=== PATIENT | female | born 1955 | race Caucasian/White ===

== ENCOUNTER 2019-09-02 14:08 | Outpatient (CLI) | payer MEDICARE, OTHER, SELFPAY ==
--- NOTE | 2019-09-02 14:18 | XRR_ITS ---
PROCEDURE INFORMATION: Exam: XR Chest, 2 Views Exam date and time: 09/02/2019 2:31 PM Age: 64 years old Clinical indication: Other: Iritis, lyme disease; Additional info: Iritis/lyme disease TECHNIQUE: Imaging protocol: XR of the chest Views: 2 views. COMPARISON: CR Chest 1 [place] [id number] 01/01/2018 10:16 AM FINDINGS: Lungs: Unremarkable. No consolidation. Pleural space: Unremarkable. No pleural effusion. No pneumothorax. Heart/Mediastinum: Unremarkable. No cardiomegaly. Bones/joints: Unremarkable. XR/XR chest 2V* [id number] IMPRESSION: No acute findings.
== END 2019-09-02 14:09 | disposition home or self-care (01) ==
LOC: RAD 14:13
PROVIDERS: Family Provider Family Medicine; Visit Provider Family Medicine
DX: H20.9 Unspecified iridocyclitis (principal); A69.20 Lyme disease, unspecified
CPT/HCPCS: 71046

== ENCOUNTER 2019-09-20 10:55 | Outpatient (CLI) | payer MEDICARE, OTHER, BC, SELFPAY ==
--- NOTE | 2019-09-20 11:05 | XRR_ITS ---
PROCEDURE INFORMATION: Exam: XR Left Foot Complete Exam date and time: 09/20/2019 11:20 AM Age: 64 years old Clinical indication: Patient HX: Foot pain left second digit x 2 weeks; Additional info: Left foot pain TECHNIQUE: Imaging protocol: XR Left foot. Views: 3 or more views. COMPARISON: No relevant prior studies available. FINDINGS: Bones/joints: Hindfoot -midfoot and midfoot-forefoot articulations normal. Metatarsals and phalanges without an acute process. Subtalar and tibiotalar joint normal. degenerative changes at the first metatarsal phalangeal joint. Degenerative changes within the distal interphalangeal joints most pronounced 3rd ray. large spur formation at the insertion of the plantar aponeurosis. Soft tissues: Normal. XR/XR foot LT min 3V* [id number] IMPRESSION: 1. Degenerative changes within the distal interphalangeal joints most pronounced 3rd ray. 2. Large spur formation at the insertion of the plantar aponeurosis.
== END 2019-09-20 10:56 | disposition home or self-care (01) ==
LOC: RAD 11:00
PROVIDERS: PCP Family Medicine; Visit Provider Nurse Practitioner Family
DX: M79.672 Pain in left foot (principal); M77.32 Calcaneal spur, left foot
CPT/HCPCS: 73630

== ENCOUNTER 2020-03-06 07:49 | Outpatient (CLI) | payer MEDICARE, OTHER, SELFPAY ==
--- NOTE | 2020-03-06 07:57 | MM_ITS ---
WS: [id number] BILATERAL DIGITAL SCREENING MAMMOGRAPHY WITH CAD CLINICAL INFORMATION: SCREENING HISTORY: Screening mammogram. No current complaints. COMPARISON: TECHNIQUE: Bilateral CC and MLO views. FINDINGS: Scattered fibroglandular densities bilaterally. No suspicious focal mass, asymmetry, calcifications, or architectural distortion. No evidence of malignancy. Punctate and lucent centered calcifications. Vascular calcification. MM/[place] [id number] IMPRESSION: BI-RADS: 2-Benign FOLLOW UP: 1 Year Follow-up Recommend return to annual screening mammography.
== END 2020-03-06 07:50 | disposition home or self-care (01) ==
LOC: RADSHAW 07:55
PROVIDERS: PCP Family Medicine; Visit Provider Family Medicine
DX: Z12.31 Encounter for screening mammogram for malignant neoplasm of breast (principal)
CPT/HCPCS: 77067

== ENCOUNTER 2020-04-27 14:39 | Outpatient (CLI) | payer MEDICARE, OTHER, SELFPAY ==
--- NOTE | 2020-04-27 14:51 | US_ITS ---
WS: [id number] INDICATION: Left calf mass TECHNIQUE: Ultrasound soft tissue area of concern FINDINGS: Ultrasound soft tissue area of concern left lateral calf. Normal underlying subcutaneous ti ssue. No cystic or solid lesions. No other abnormalities. US/US soft tissue/extremity [id number] IMPRESSION: Normal soft tissue ultrasound
== END 2020-04-27 14:40 | disposition home or self-care (01) ==
LOC: RAD 14:47
PROVIDERS: PCP Family Medicine; Visit Provider Family Medicine
DX: R22.42 Localized swelling, mass and lump, left lower limb (principal)
CPT/HCPCS: 76882

== ENCOUNTER 2021-07-09 12:49 | Outpatient (CLI) | payer MEDICARE, OTHER, SELFPAY ==
--- NOTE | 2021-07-09 13:11 | MM_ITS ---
WS: [id number] VIEWS: MLO, CC, and ML views both breasts. 3D digital tomosynthesis is also included in this exam. Comparison made with prior exam of 09/02/2011. 03/22/2013. 07/23/2015. 09/22/2016. 01/10/2018. 03/06/2020.. Findings: There was no sign of mass, architectural distortion or suspicious calcification in either breast. Sc attered fibroglandular densities. Regional ultrasound of the left breast from the 7 to 9:00 position would be indicated for further workup. MM/[place] [id number] Impression: BI-RADS: 0-Incomplete: Need additional imaging evaluation FOLLOW-UP: Need Additional Imaging This mammogram was also analyzed by the Computer Aided Detection System R2 Imag e Eligibility And Occupancy Interviewer.
--- NOTE | 2021-07-09 13:11 | US_ITS ---
WS: [id number] Exam: US breast LT limited* [id number] Date/Time of Exam: 07/09/2021 2:09 PM Reason For Exam: BREAST ANOMALY;LT BREAST LUMP The 7:00 to the 9:00 position in the left breast was evaluated with ultrasound. There was no sign of suspicious solid mass or nodule in this region. There were no cysts identified. Recommendations: Continue yearly screening mammography. US/US breast LT limited* [id number] IMPRESSION: 1. No suspicious ultrasound finding identified from the 7:00 to the 9:00 positi on in the left breast. BI-RADS Category 2
== END 2021-07-09 12:50 | disposition home or self-care (01) ==
LOC: RAD 12:53
PROVIDERS: PCP Family Medicine; Visit Provider Family Medicine
DX: Q83.9 Congenital malformation of breast, unspecified (principal)
CPT/HCPCS: 76642; 77062

== ENCOUNTER → 2021-08-12 12:18 | Outpatient (BNVA) | payer MEDICARE, OTHER, SELFPAY | PROVIDERS: PCP Family Medicine; Visit Provider Family Medicine | DX: R53.83 Other fatigue (principal); R06.00 Dyspnea, unspecified; Q83.9 Congenital malformation of breast, unspecified; R07.89 Other chest pain; F43.9 Reaction to severe stress, unspecified | CPT/HCPCS: 80053; 82607; 84439; 84443; 84481; 85025; 85651; 86140 ==

== ENCOUNTER → 2021-08-23 11:03 | Outpatient (BNVA) | payer MEDICARE, OTHER, SELFPAY | PROVIDERS: PCP Family Medicine; Visit Provider Surgery | DX: N64.4 Mastodynia (principal) | CPT/HCPCS: 99203 ==

== ENCOUNTER → 2021-09-22 17:49 | Outpatient (BNVA) | payer MEDICARE, OTHER, SELFPAY | PROVIDERS: PCP Family Medicine; Visit Provider Family Medicine | DX: R30.0 Dysuria (principal); N39.0 Urinary tract infection, site not specified | CPT/HCPCS: 81000; 87086 ==

== ENCOUNTER → 2021-10-26 10:19 | Outpatient (BNVA) | payer MEDICARE, OTHER, SELFPAY | PROVIDERS: PCP Family Medicine; Visit Provider Family Medicine | DX: N39.0 Urinary tract infection, site not specified (principal); J02.9 Acute pharyngitis, unspecified | CPT/HCPCS: 81000 ==

== ENCOUNTER → 2021-12-12 19:00 | Outpatient (BNVA) | payer MEDICARE, OTHER, SELFPAY | PROVIDERS: PCP Family Medicine; Visit Provider Registered Nurse Neonatal Intensive Care | DX: N39.0 Urinary tract infection, site not specified (principal) | CPT/HCPCS: 87086 ==

== ENCOUNTER → 2022-07-07 08:55 | Outpatient (BNVA) | payer MEDICARE, OTHER, SELFPAY | PROVIDERS: PCP Family Medicine; Visit Provider Family Medicine | DX: F41.9 Anxiety disorder, unspecified (principal); N63.0 Unspecified lump in unspecified breast; Z86.39 Personal history of other endocrine, nutritional and metabolic disease; E03.9 Hypothyroidism, unspecified; Z13.6 Encounter for screening for cardiovascular disorders | CPT/HCPCS: 80053; 80061; 81000; 84443; 85025 ==

== ENCOUNTER 2022-08-31 10:51 | Outpatient (CLI) | payer MEDICARE, OTHER, SELFPAY ==
--- NOTE | 2022-08-31 11:17 | MM_ITS ---
WS: [id number] BILATERAL 3D TOMOSYNTHESIS DIGITAL SCREENING MAMMOGRAPHY WITH CAD CLINICAL INFORMATION: SCREENING HISTORY: Screening mammogram. No current complaints. COMPARISON: 2021 TECHNIQUE: Bilateral CC and MLO views. FINDINGS: Scattered fibroglandular densities bilaterally. Progressed asymmetric density mid to posterior LEFT b reast measuring 8 mm along the posterior nipple line best seen on the MLO view. Recommend LEFT breast diagnostic mammography and ultrasound. RIGHT breast is unremarkable. Vascular calcification. Punctate and lucent centered calcifications. MM/[place] [id number] IMPRESSION: BI-RADS: 0-Incomplete: Need additional imaging evaluation FOLLOW UP: Need Additional Imaging Recommend LEFT breast diagnostic mammography and ultrasound.
== END 2022-08-31 10:52 | disposition home or self-care (01) ==
LOC: RAD 10:58 → MOBLMAM 11:00
PROVIDERS: PCP Family Medicine; Visit Provider Family Medicine
DX: Z12.31 Encounter for screening mammogram for malignant neoplasm of breast (principal)
CPT/HCPCS: 77063; 77067

== ENCOUNTER 2022-09-29 13:42 | Outpatient (CLI) | payer MEDICARE, OTHER, SELFPAY ==
--- NOTE | 2022-09-29 13:47 | MM_ITS ---
WS: [id number] LEFT 3D TOMOSYNTHESIS DIGITAL MAMMOGRAPHY WITH CAD CLINICAL INFORMATION: N63.0 - Unspecified lump in unspecified breast HISTORY: Additional views COMPARISON: 08/31/2022 TECHNIQUE: 3 views of the left breast were obtained. FINDINGS: Scattered fibroglandular densities of the left breast. Punctate and lucent centered calcifications. 7 mm asymmetric density along the posterior nipple line partially compresses out on the spot compressio n views today. No new abnormalities. Ultrasound described below. ULTRASOUND BREAST LEFT TECHNIQUE: Ultrasound left breast focused area of concern. CLINICAL INFORMATION: N63.0 - Unspecified lump in unspecified breast FINDINGS: Ultrasound left breast at the 6 o'clock position deep to the nipple. No suspicious cystic or solid le sions. Mild ductal ectasia. No suspicious lesions to target for biopsy. Recommend return to annual sc reening mammography. IMPRESSION: MM/[place] [id number] BI-RADS: 2-Benign FOLLOW UP: 1 Year Follow-up Recommend return to annual screening mammography.
== END 2022-09-29 13:43 | disposition home or self-care (01) ==
PROVIDERS: PCP Family Medicine; Visit Provider Family Medicine
DX: N63.10 Unspecified lump in the right breast, unspecified quadrant (principal); R92.2 Inconclusive mammogram; N60.42 Mammary duct ectasia of left breast
CPT/HCPCS: 76642; 77061; G0279

== ENCOUNTER → 2022-10-21 09:28 | Outpatient (BNVA) | payer MEDICARE, OTHER, SELFPAY | PROVIDERS: PCP Family Medicine; Visit Provider Clinical Nurse Specialist Adult Health | DX: R39.9 Unspecified symptoms and signs involving the genitourinary system (principal); R30.0 Dysuria | CPT/HCPCS: 81000; 87086 ==

== ENCOUNTER → 2023-03-27 08:16 | Outpatient (BNVA) | payer MEDICARE, OTHER, SELFPAY | PROVIDERS: PCP Family Medicine; Visit Provider Clinical Nurse Specialist Adult Health | DX: N39.0 Urinary tract infection, site not specified (principal) | CPT/HCPCS: 81000; 87086 ==

== ENCOUNTER 2023-04-09 09:24 | Emergency (ER) | payer MEDICARE, OTHER, SELFPAY ==
[2023-04-09 09:30] VITALS: BP 142/93; PULSE 100; RESP 16; TEMP 36.7; O2SAT 96
[2023-04-09] MEDS: ketorolac 30 mg/mL INJ IVP (09:57)
[2023-04-09] MEDS: dexamethasone 10 mg/mL INJ IM (10:00)
[2023-04-09] MEDS: orphenadrine 30 mg/mL Inj 2 mL 60 MG IM (10:00)
[2023-04-09 10:08] VITALS: O2SAT 96
--- NOTE | 2023-04-09 10:11 | ED_ITS ---
HPI - Back Pain/Injury 2 General: Chief Complaint: Back Pain/Injury Stated Complaint: Back pain Time Seen by Provider: 04/09/23 09:29 Source: patient Mode of arrival: ambulatory History of Present Illness: 67-year-old female presents emergency ro om with complaint of back pain that began last night. She has a history of recent UTI remote history of nephrolithiasis she is concerned she has recurrent of symptoms. She is fairly active. She has no pain radiating down relates she did not notice any hematuria no dysuria urgency but felt she had a little more frequency overnight. No fever sweats or chills MD elicited complaint: back pain Pertinent past history: prior back pain Onset (ago): day(s) Timing: constant Severity: moderate Similar Symptoms Previously: Yes Quality: spasming Location: lumbar spine (Left) and left lower back Exacerbating factors: movement, sitting upright and walking Relieving factors: supine Associated symptoms: Deny abdominal pain, arthralgias, chills, change in bowel habits, difficulty walking, dysuria, fatigue, fecal incontinence, fever(s), hematuria, myalgias, nausea, numbness, syncope, tingling/numbness/burning, urinary frequency, urinary urgency, vomiting or weakness Review of Systems 2 Const: Denies: fever(s), chills or fatigue Card: Denies: chest pain or syncope Resp: Denies: dyspnea GI: Denies: abdominal pain, nausea, vomiting, fecal incontinence or change in bowel habits : Reports: urinary frequency; Denies: flank pain, dysuria, urinary urgency or hematuria Musc: Reports: back pain; Denies: neck pain Skin/Breast: Denies: rash Neuro: Denies: difficulty walking PFS ED 2 PFSH: Medical History GERD (gastroesophageal reflux disease) Seasonal allergies Thyroid goiter History of hypothyroidism History of Lyme disease Insomnia Surgical History History of total hysterectomy 1984/severe endometriosis History of appendectomy 1969 History of back surgery 1977-- 4th and 5th lumbar disc removal-- denies any complications Family History Denies family history of Diabetes CAD (coronary artery disease) Clotting disorder Hyperlipidemia Chronic kidney disease (CKD) Bleeding disorder Cancer Hypertension Thyroid disease Stroke Social History Smoking and tobacco/nicotine status: never used tobacco/nicotine Substance/Drug Use: never Physical Exam 2 Const: GENERAL APPEARANCE: cooperative ORIENTATION/CONSCIOUSNESS: Yes awake, Yes oriented to person, Yes oriented to place and Yes oriented to time HENMT: COMMON NORMALS: normocephalic, atraumatic and hearing grossly normal bilaterally HEAD & SCALP: normocephalic and atraumatic Resp: COMMON NORMALS: normal respiratory effort, No retractions, No use of accessory muscles and clear to auscultation bilaterally AUSCULTATION: clear to auscultation bilaterally Cardio: COMMON NORMALS: regular rate, regular rhythm and No murmurs present (Cardio) RATE: regular rate RHYTHM: regular rhythm GI: COMMON NORMALS: Soft to palpation and No hepatosplenomegaly present A USCULTATION: Yes normoactive bowel sounds PALPATION: Yes Soft to palpation, No Tenderness to palpation present (GI), No Guarding due to palpation present (GI) and Yes No hepatosplenomegaly present : COMMON NORMALS: Yes no CVA tenderness BLADDER/KIDNEY EXAM: Yes no CVA tenderness Back/Pelvis: COMMON NORMALS: no CVA tenderness OTHER: Mild discomfort with palpation left lower lumbar spine level L4-5. Extremity: COMMON NORMALS: normal to inspection, capillary refill normal, no clubbing, cyanosis or edema, no calf tenderness and no pedal edema Neuro: SENSORIUM/ORIENTATION: Yes oriented to person, Yes oriented to place and Yes oriented to time Skin: COMMON NORMALS: no rashes or lesions noted GENERAL SKIN EXAM: no rashes or lesions noted Course 2 Vital Signs: Vital signs: Vital Signs Temperature 98.1 F 04/09/23 09:30 Pulse Rate 84 04/09/23 10:33 Respiratory Rate 16 04/09/23 09:30 Blood Pressure 142/93 04/09/23 09:30 Pulse Oximetry 95 04/09/23 10:33 Oxygen Delivery Me thod Room Air 04/09/23 10:33 MDM - Back Pain/Injury Medical Decision Making 67-year-old female with low back pain is very positional she is worsening. She tried sit up even in bed. UA does not show hematuria no sign of cystitis white count normal no leukocytosis. Will discharge patient home with a steroid taper muscle relaxers and anti-inflammatories. Follow-up with primary care if not improving. avoid strenuous lifting bending and twisting Medical Records I reviewed the patient's medical records. Labs I reviewed the patient's lab results. 04/09/23 10:30 04/09/23 10:30 Laboratory Results WBC 7.18 10^3/uL (3.29-11.43) 04/09/23 10:30 RBC 4.23 10^6/uL (3.85-5.65) 04/09/23 10:30 Hgb 13.60 g/dL (11.27-16.99) 04/09/23 10:30 Hct 41.2 % (36-47) 04/09/23 10:30 MCV 97.4 fl (85-98) 04/09/23 10:30 MCH 32.2 pg (27-33) 04/09/23 10:30 MCHC 33.0 g/dL (30-55) 04/09/23 10:30 RDW 12.8 % (12.1-15.1) 04/09/23 10:30 Plt Count 163 10^3/cmm (157-399) 04/09/23 10:30 MPV 10.8 fL (7.4-10.4) H 04/09/23 10:30 Neut % (Auto) 71.4 % 04/09/23 10:30 Lymph % (Auto) 18.2 % 04/09/23 10:30 [place] % (Auto) 9.3 % 04/09/23 10:30 Eos % (Auto) 0.7 % 04/09/23 10:30 Baso % (Auto) 0.3 % 04/09/23 10:30 Neut # (Auto) 5.12 10^3/uL (1.8-7.7) 04/09/23 10:30 Lymph # (Auto) 1.3 10^3/uL (0.8-4.8) 04/09/23 10:30 [place] # (Auto) 0.7 10^3/uL (0.2-0.9) 04/09/23 10:30 Eos # (Auto) 0.1 10^3/uL (0.0-0.8) 04/09/23 10:30 Baso # (Auto) 0.0 10^3/uL (0.0-0.1) 04/09/23 10:30 Nucleated RBC % (auto) 0 % 04/09/23 10:30 Nucleated RBCs # 0.0 /100WBC 04/09/23 10:30 Sodium 138 mmol/L (136-145) 04/09/23 10:30 Potassium 4.0 mmol/L (3.5-5.1) 04/09/23 10:30 Chloride 103 mmol/L (98-107) 04/09/23 10:30 Carbon Dioxide 25 mmol/L (22-29) 04/09/23 10:30 Anion Gap 14.0 (5-19) 04/09/23 10:30 BUN 15 mg/dL (8-23) 04/09/23 10:30 Creatinine 0.7 mg/dL (0.5-0.9) 04/09/23 10:30 GFR Calculation 83.0 mL/min (90-130) L 04/09/23 10:30 Glucose 105 mg/dL (65-115) 04/09/23 10:30 Calculated Osmolality 287 mOsm/kg (285-295) 04/09/23 10:30 Calcium 8.9 mg/dL (8.5-10.5) 04/09/23 10:30 Total Bilirubin 0.4 mg/dL (0.15-1.2) 04/09/23 10:30 AST 18 U/L (0-32) 04/09/23 10:30 ALT 17 U/L (0-33) 04/09/23 10:30 Alkaline Phosphatase 79 U/L (35-105) 04/09/23 10:30 Total Protein 6.9 g/dL (6.6-8.7) 04/09/23 10:30 Albumin 4.0 g/dL (3.5-5.2) 04/09/23 10:30 Globulin 2.9 g/dL (1.3-4.6) 04/09/23 10:30 Urine Color Straw (Yellow) 04/09/23 09:43 Urine Appearance Clear (CLEAR) 04/09/23 09:43 Urine pH 5 (5-7) 04/09/23 09:43 Ur Specific [place] 1.010 (1.005-1.030) 04/09/23 09:43 Urine Protein Neg (Negative) 04/09/23 09:43 Urine Glucose (UA) Norm (Normal) 04/09/23 09:43 Urine Ketones Negative (Negative) 04/09/23 09:43 Urine Blood Neg (Negative) 04/09/23 09:43 Urine Nitrate Negative (Negative) 04/09/23 09:43 Urine Bilirubin Neg (Negative) 04/09/23 09:43 Urine Urobilinogen Norm mg/dL (Negative) 04/09/23 09:43 Ur Leukocyte Esterase Trace (Negative) H 04/09/23 09:43 Urine RBC None /hpf (0-2) 04/09/23 09:43 Urine WBC 0-4 /hpf (0-5) H 04/09/23 09:43 Ur Squamous Epith Cells 0-4 /hpf (0-5) H 04/09/23 09:43 Amorphous Sediment Not Reportable 04/09/23 09:43 Urine Bacteria Trace /hpf (NONE) 04/09/23 09:43 No radiology studies performed this visit Discharge Plan Discharge Patient Disposition: Home Clinical Impression: Back pain Condition: Stable Prescriptions: New tizanidine 4 mg tablet 4 mg PO Q6H PRN (Reason: muscle spasticity) Qty: 20 0RF Rx Instructions: do not exceed 3 doses per 24 hrs prednisone 20 mg tablet 20 mg PO TID Qty: 15 0RF Rx Instructions: 1 p.o. 3 times daily x3 days, 1 p.o. twice daily x2 days, 1 p.o. daily x2 days diclofenac sodium 75 mg tablet,delayed release (DR/EC) 75 mg PO Q12H PRN (Reason: pain) Qty: 20 0RF No Action aspirin 81 mg tablet,delayed release (DR/EC) 81 mg PO DAILY calcium carbonate-vitamin D3 [Calcium 600 with Vitamin D3] 600 mg(1,500mg) - 500 unit capsule 1 cap PO DAILY clobetasol 0.05 % cream 1 applic topical BID Rx Instructions: use twice daily for two weeks only and then twice a week after that. montelukast 10 mg tablet 10 mg PO DAILY Qty: 30 11RF amoxicillin-pot clavulanate [Augmentin] 500-125 mg tablet 1 tab PO TID 7 Days Qty: 21 0RF alprazolam [Xanax] 0.25 mg tablet 0.25 - 0.5 mg PO .qpm PRN (Reason: anxiety, stress, sleep) Qty: 60 3RF fluticasone propionate [Flonase Allergy Relief] 50 mcg/actuation spray,suspension 1 spray INTRANASAL DAILY PRN (Reason: sinus congestion) Qty: 16 5RF Rx Instructions: administer into each nostril zolpidem [Ambien] 10 mg tablet 10 mg PO .qhs Qty: 30 5RF Discharge Orders: Discharge ED (Routine); Ordered 04/09/23 Ordered By: Bryan Nuno Referrals: Yariel Sherwood DO [Primary Care Provider] - Patient Instructions: Acute Low Back Pain (ED), Opioid Safety, Pain Management Activity Restrictions/Additional Instructions: Thank you for choosing [facility] for your healthcare needs today. Please realize this is an emergency room and that we are providing you with a medical screening exam and this may not be complete and all inclusive of all the testing and or work up that you may need to determine your ailment or severity of your illness. It is very important that you follow up as instructed or that you return to the Emergency Department should you have concerns or if your condition changes or worsens in any way. Coding Level of Care Code ED Power House Engineer for Lili Velarde
[2023-04-09 10:33] VITALS: PULSE 84; O2SAT 95
[2023-04-09 10:49] LABS: Basophils % 0.3 %; Eosinophils # 0.1 10^3/uL (0.0-0.8); Eosinophils % 0.7 %; Hematocrit 41.2 % (36-47); Lymphocytes # 1.3 10^3/uL (0.8-4.8); Lymphocytes % 18.2 %; Mean Corpuscular Hemoglobin 32.2 pg (27-33); Mean Corpuscular Volume 97.4 fl (85-98); Mean Platelet Volume 10.8 fL (7.4-10.4); Monocytes # 0.7 10^3/uL (0.2-0.9); Monocytes % 9.3 %; Neutrophils # 5.12 10^3/uL (1.8-7.7); Neutrophils % 71.4 %; Nucleated Red Blood Cells % 0 %; Platelet Count 163 10^3/cmm (157-399); Red Blood Count 4.23 10^6/uL (3.85-5.65); Red Cell Distribution Width 12.8 % (12.1-15.1); White Blood Count 7.18 10^3/uL (3.29-11.43)
[2023-04-09 11:00] VITALS: BP 132/79; PULSE 83; RESP 14; O2SAT 97
[2023-04-09 11:01] LABS: Add Urine Microscopic? YES; Bilirubin Urine Neg (Negative); Blood Urine Neg (Negative); Glucose Urine UA Norm (Normal); Ketones Urine Negative (Negative); Leukocyte Esterase Urine Trace (Negative); Nitrate Urine Negative (Negative); Protein Urine Neg (Negative); Urine Appearance Clear (CLEAR); Urine Color Straw (Yellow); Urobilinogen Urine Norm (Negative); pH Urine 5 (5-7)
[2023-04-09 11:02] LABS: Add Urine Culture? No; Bacteria Urine TRACE /hpf; Squamous Epithelial Cell Urine 0-4 /hpf (0-5); WBC Urine 0-4 /hpf (0-5)
[2023-04-09 11:04] LABS: Alanine Aminotransferase 17 U/L (0-33); Alkaline Phosphatase 79 U/L (35-105); Aspartate Amino Transferase 18 U/L (0-32); Blood Urea Nitrogen 15 mg/dL (8-23); Calcium 8.9 mg/dL (8.5-10.5); Carbon Dioxide 25 mmol/L (22-29); Chloride 103 mmol/L (98-107); Creatinine Clr Calc Pharmacy 62.8616; Globulin 2.9 g/dL (1.3-4.6); Glucose 105 mg/dL (65-115); Osmolality Calculated 287 mOsm/kg (285-295); Sodium 138 mmol/L (136-145); Total Bilirubin 0.4 mg/dL (0.15-1.2); Total Protein 6.9 g/dL (6.6-8.7)
== END 2023-04-09 12:24 | disposition home or self-care (01) ==
PROVIDERS: Emergency Provider Family Medicine; PCP Family Medicine
DX: M54.9 Dorsalgia, unspecified (principal); Z79.82 Long term (current) use of aspirin
CPT/HCPCS: 36415; 80053; 81001; 85025; 96374; 99284; J1100; J1885; J2360

== ENCOUNTER → 2023-04-20 11:42 | Outpatient (BNVA) | payer MEDICARE, OTHER, SELFPAY | PROVIDERS: PCP Family Medicine; Visit Provider Family Medicine | DX: N39.0 Urinary tract infection, site not specified (principal) | CPT/HCPCS: 81000 ==

== ENCOUNTER → 2023-09-29 11:14 | Outpatient (BNVA) | payer MEDICARE, OTHER, SELFPAY | PROVIDERS: PCP Family Medicine; Visit Provider Clinical Nurse Specialist Adult Health | DX: R30.0 Dysuria (principal) | CPT/HCPCS: 81000 ==

== ENCOUNTER 2023-10-05 08:21 | Inpatient (IN) | payer MEDICARE, OTHER, SELFPAY ==
[2023-10-05 08:28] VITALS: BP 158/94; PULSE 94; RESP 18; TEMP 36.8; O2SAT 96; BMI 29.7
--- NOTE | 2023-10-05 08:39 | ED_ITS ---
HPI - Female Genitourinary 2 General: Chief complaint: Urogenital-Female Stated complaint: Urinary Time Seen by Provider: 10/05/23 08:28 History of Present Illness: 68-year-old female presents to the ER wi th complaint of suprapubic pain localizes it more to the left. She also has had some isolated episodes of hematuria recently. This resolved on its own. She denies any diarrhea. Patient reports a colonoscopy about 8 years ago that she was told was normal. Patient was seen on 816 in the office at that time UA was negative. Acute trace findings on the dip but no microscopy was done no clear signs of infection patient was treated empirically with ciprofloxacin. I do not see a culture on the chart from that UA. Associated symptoms: Reports abdominal pain; Deny nausea Related Data Home Medications Medication Instructions Recorded Confirmed aspirin 81 mg tablet,delayed 81 mg PO DAILY 09/30/19 10/05/23 release calcium carbonate 600 mg-vitamin 1 cap PO DAILY 11/06/20 10/05/23 D3 12.5 mcg (500 unit) capsule (Calcium 600 with Vitamin D3) ketoconazole 2 % topical cream 1 applic topical BID PRN rash/skin 10/05/23 10/05/23 irritation zolpidem 10 mg tablet (Ambien) 10 mg PO BEDTIME sleep 10/05/23 10/05/23 Previous Rx's Medication Instructions Recorded montelukast 10 mg tablet 10 mg PO DAILY #30 tabs 06/12/23 alprazolam 0.25 mg tablet (Xanax) 0.25 - 0.5 mg (1 - 2 x 0.25 mg) PO 08/10/23 .qpm PRN anxiety, stress, sleep #60 tabs fluticasone propionate 50 1 spray intranasal DAILY PRN sinus 08/10/23 mcg/actuation nasal congestion #16 grams spray,suspension (Flonase Allergy Relief) ciprofloxacin HCl 500 mg tablet 500 mg PO BID 7 days #14 tabs 09/29/23 (Cipro) fluconazole 100 mg tablet 100 mg PO Q72H #2 tabs 09/29/23 (Diflucan) Allergies Allergy/AdvReac Type Severity Reaction Status Date / Time No Known Allergies Allergy Verified 10/05/23 08:36 Review of Systems 2 Const: Denies: fever(s) or chills Card: Denies: chest pain Resp: Denies: dyspnea GI: Reports: abdominal pain and GI cramping; Denies: nausea, vomiting or hematochezia : Reports: hematuria; Denies: dysuria, urinary frequency or urinary urgency Musc: Denies: neck pain or back pain Skin/Breast: Denies: rash PFSH ED 2 PFSH: Medical History (Updated 10/05/23 @ 17:31 by Bryan Nuno DO) Anxiety GERD (gastroesophageal reflux disease) Seasonal allergies Thyroid goiter History of hypothyroidism History of Lyme disease Insomnia Surgical History History of total hysterectomy 1984/severe endometriosis History of appendectomy 1970 History of back surgery 1977-- 4th and 5th lumbar disc removal-- denies any complications Family History Denies family history of Diabetes CAD (coronary artery disease) Clotting disorder Hyperlipidemia Chronic kidney disease (CKD) Bleeding disorder Cancer Hypertension Thyroid disease Stroke Social History Smoking and tobacco/nicotine status: never used tobacco/nicotine Substance/Drug Use: never Physical Exam 2 Const: GENERAL APPEARANCE: cooperative ORIENTATION/CONSCIOUSNESS: Yes awake, Yes oriented to person, Yes oriented to place and Yes oriented to time HENMT: COMMON NORMALS: normocephalic, atraumatic and hearing grossly normal bilaterally HEAD & SCALP: normocephalic and atraumatic Resp: COMMON NORMALS: normal respiratory effort, No retractions, No use of accessory muscles and clear to auscultation bilaterally AUSCULTATION: clear to auscultation bilaterally Cardio: COMMON NORMALS: regular rate, regular rhythm and No murmurs present (Cardio) RATE: regular rate RHYTHM: regular rhythm GI: COMMON NORMALS: No hepatosplenomegaly present AUSCULTATION: Yes normoactive bowel sounds PALPATION: Yes Tenderness to palpation present (GI) Details: LLQ, No Guarding due to palpation present (GI) and Yes No hepatosplenomegaly present Extremity: COMMON NORMALS: normal to inspection, capillary refill normal, no clubbing, cyanosis or edema, no calf tenderness and no pedal edema Neuro: SENSORIUM/ORIENTATION: Yes oriented to person, Yes oriented to place and Yes oriented to time Skin: COMMON NORMALS: no rashes or lesions noted GENERAL SKIN EXAM: no rashes or lesions noted Course 2 Vital Signs: Vital signs: Vital Signs Temperature 97.6 F 10/05/23 16:00 Pulse Rate 93 10/05/23 16:00 Respiratory Rate 16 10/05/23 16:00 Blood Pressure 153/84 10/05/23 16:00 Pulse Oximetry 97 10/05/23 16:00 Oxygen Delivery Me thod Room Air 10/05/23 16:00 MDM - Female Medical Decision Making Labs and imaging reviewed patient has diverticulitis with a 2 x 2 cm intraluminal abscess. She has failed outpatient therapy at this point. Will start her on Zosyn and admit. Consult general surgery. UA was negative. Medical Records I reviewed the patient's medical records. Lab Data I reviewed the patient's lab results. 10/05/23 09:21 10/05/23 09:21 Radiology Impressions Abdomen/Pelvis CT 10/05/23 08:59 IMPRESSION: 1. Advanced acute sigmoid diverticulitis. Large amount of pericolonic stranding with wall thickening and narrowing of the lumen. 2. Intramural sigmoid abscess is developing. There is a very thick wall collection with a small amount of air centrally. The developing abscess measures 2.0 x 2.0 cm. 3. No free air. 4. No renal obstruction or calcifications. There is very slight dilatation of the LEFT ureter which may be result of the ureter closely associated with the acute diverticular process in the pelvis causing a mild aperistalsis. There is no obstruction of the kidney. 5. Diffuse constipation. Laboratory Results WBC 10.38 10^3/uL (3.29-11.43) 10/05/23 09:21 RBC 4.37 10^6/uL (3.85-5.65) 10/05/23 09:21 Hgb 13.90 g/dL (11.27-16.99) 10/05/23 09:21 Hct 43.6 % (36-47) 10/05/23 09:21 MCV 99.8 fl (85-98) H 10/05/23 09:21 MCH 31.8 pg (27-33) 10/05/23 09:21 MCHC 31.9 g/dL (30-55) 10/05/23 09:21 RDW 12.6 % (12.1-15.1) 10/05/23 09:21 Plt Count 243 10^3/cmm (157-399) 10/05/23 09:21 MPV 9.7 fL (7.4-10.4) 10/05/23 09:21 Neut % (Auto) 77.8 % 10/05/23 09:21 Lymph % (Auto) 11.8 % 10/05/23 09:21 [place] % (Auto) 8.5 % 10/05/23 09:21 Eos % (Auto) 1.1 % 10/05/23 09:21 Baso % (Auto) 0.4 % 10/05/23 09:21 Neut # (Auto) 8.09 10^3/uL (1.8-7.7) H 10/05/23 09:21 Lymph # (Auto) 1.2 10^3/uL (0.8-4.8) 10/05/23 09:21 [place] # (Auto) 0.9 10^3/uL (0.2-0.9) 10/05/23 09:21 Eos # (Auto) 0.1 10^3/uL (0.0-0.8) 10/05/23 09:21 Baso # (Auto) 0.0 10^3/uL (0.0-0.1) 10/05/23 09:21 Nucleated RBC % (auto) 0 % 10/05/23 09:21 Nucleated RBCs # 0.0 /100WBC 10/05/23 09:21 Sodium 141 mmol/L (136-145) 10/05/23 09:21 Potassium 3.8 mmol/L (3.5-5.1) 10/05/23 09:21 Chloride 105 mmol/L (98-107) 10/05/23 09:21 Carbon Dioxide 26 mmol/L (22-29) 10/05/23 09:21 Anion Gap 13.8 (5-19) 10/05/23 09:21 BUN 13 mg/dL (8-23) 10/05/23 09:21 Creatinine 0.8 mg/dL (0.5-0.9) 10/05/23 09:21 GFR Calculation 70.9 mL/min (90-130) L 10/05/23 09:21 Glucose 107 mg/dL (65-115) 10/05/23 09:21 Calculated Osmolality 293 mOsm/kg (285-295) 10/05/23 09:21 Lactic Acid 0.9 mmol/L (0.5-2.2) 10/05/23 11:17 Calcium 9.0 mg/dL (8.5-10.5) 10/05/23 09:21 Total Bilirubin 0.4 mg/dL (0.15-1.2) 10/05/23 09:21 AST 18 U/L (0-32) 10/05/23 09:21 ALT 17 U/L (0-33) 10/05/23 09:21 Alkaline Phosphatase 84 U/L (35-105) 10/05/23 09:21 Total Protein 7.3 g/dL (6.6-8.7) 10/05/23 09:21 Albumin 4.0 g/dL (3.5-5.2) 10/05/23 09:21 Globulin 3.3 g/dL (1.3-4.6) 10/05/23 09:21 Urine Color Yellow (Yellow) 10/05/23 09:18 Urine Appearance Clear (CLEAR) 10/05/23 09:18 Urine pH 5.5 (5-7) 10/05/23 09:18 Ur Specific [place] 1.009 (1.005-1.030) 10/05/23 09:18 Urine Protein Negative (Negative) 10/05/23 09:18 Urine Glucose (UA) Negative (Normal) 10/05/23 09:18 Urine Ketones Negative (Negative) 10/05/23 09:18 Urine Blood Negative (Negative) 10/05/23 09:18 Urine Nitrate Negative (Negative) 10/05/23 09:18 Urine Bilirubin Negative (Negative) 10/05/23 09:18 Urine Urobilinogen 0.2 mg/dL (Negative) 10/05/23 09:18 Ur Leukocyte Esterase Negative (Negative) 10/05/23 09:18 Urine RBC 0-2 /hpf (0-2) 10/05/23 09:18 Urine WBC 0-5 /hpf (0-5) 10/05/23 09:18 Ur Squamous Epith Cells 0-5 /hpf (0-5) 10/05/23 09:18 Amorphous Sediment Not Reportable 10/05/23 09:18 Urine Bacteria None seen /hpf (NONE) 10/05/23 09:18 Hyaline Casts 0.40 /lpf 10/05/23 09:18 All radiology interpretation(s) finalized by discharge Discharge Plan Discharge Patient Disposition: Admitted As Inpatient Admit Provider: Lan Cam Clinical Impression: Acute diverticulitis, Colonic diverticular abscess Condition: Stable Coding Level of Care Code ED Shipping/Receiving Clerk for Lili Vlearde
--- NOTE | 2023-10-05 08:59 | CT_ITS ---
WS: [id number] CT ABDOMEN AND PELVIS WITH CONTRAST HISTORY: LEFT lower quadrant pain with nausea, blood in urine. TECHNIQUE: Imaging performed of the abdomen and pelvis with IV contrast. Single phase imaging of the abdomen. Coronal and sagittal reformats are submitted. All CT scans at [facility] use at [address] one of these dose optimization techniques: automated exposure control; mA and/or kV adjustment per patient size (includes targeted exams where dose is matched to clinical indication); or iterative re construction. IV CONTRAST: Omnipaque 350; 100 mL IV. Oral contrast: No DLP: 663.83 mGy.cm COMPARISON: None available. Lower thorax: Lung bases are clear. Heart is normal size. Moderate-sized hiatal hernia. Liver/biliary system: Normal size liver. There are a few scattered hypodensities within the liver whi ch are too small to characterize. No intrahepatic bile duct dilatation. Portal vein is normal. Gallbladder: Normal. No gallstones or wall thickening. No pericholecystic fluid. Pancreas: Normal size pancreas and pancreatic duct. No adjacent inflammation. Spleen: Normal size spleen. No mass or infarct. Adrenal glands: Normal. Right kidney: Normal. Small extrarenal pelvis. Left kidney: Normal size with no obstruction. Cortical cyst mid kidney 1.3 x 1.7 cm. LEFT ureter is v solomon slightly dilated throughout its course. No intraluminal filling defect. Aorta: Mild atherosclerosis with no aneurysm. Normal celiac axis. Mild atherosclerosis proximal SMA. Lymphadenopathy: There are a few mildly hyperemic lymph nodes in the retroperitoneum with the largest measuring 10 mm. Free fluid: Tiny amount of free fluid in the pelvis associated with the acute diverticulitis. GI tract: Stomach is not distended. No small bowel obstruction. There is at least moderate fecal rete ntion throughout the colon. The appendix has been removed. Cecum is low within the RIGHT pelvis. Incr easing diverticular disease of the descending and sigmoid colon. In the sigmoid: There numerous diver ticula with adjacent inflammation. There is luminal narrowing and displacement due to wall thickening . Intramural abscess is developing measuring 2.0 x 2.0 cm in the lateral sigmoid:. There is a tiny am ount of central air. There is no significant liquefaction. The lumen is being displaced medially. Mod erate edema and stranding around the sigmoid colon at the level of the abscess. No free air. There ar e a few tiny foci of air associated with the sigmoid which are probably within diverticula but the wa ll is very thin. Abdominal wall: Unremarkable abdominal wall. No hernia. Pelvis: Minimally distended urinary bladder. Bones: Several sclerotic foci consistent with bone islands LEFT hip. CT/CT abdomen pelvis w con* [id number] IMPRESSION: 1. Advanced acute sigmoid diverticulitis. Large amount of pericolonic strandin g with wall thickening and narrowing of the lumen. 2. Intramural sigmoid abscess is developing. There is a very thick wall collec tion with a small amount of air centrally. The developing abscess measures 2.0 x 2.0 cm. 3. No free air. 4. No renal obstruction or calcifications. There is very slight dilatation of the LEFT ureter which may be result of the ureter closely associated with the a cute diverticular process in the pelvis causing a mild aperistalsis. There is n o obstruction of the kidney. 5. Diffuse constipation.
[2023-10-05 09:27] LABS: Basophils % 0.4 %; Eosinophils # 0.1 10^3/uL (0.0-0.8); Eosinophils % 1.1 %; Hematocrit 43.6 % (36-47); Lymphocytes # 1.2 10^3/uL (0.8-4.8); Lymphocytes % 11.8 %; Mean Corpuscular HGB Conc 31.9 g/dL (30-55); Mean Corpuscular Hemoglobin 31.8 pg (27-33); Mean Corpuscular Volume 99.8 fl (85-98); Mean Platelet Volume 9.7 fL (7.4-10.4); Monocytes # 0.9 10^3/uL (0.2-0.9); Monocytes % 8.5 %; Neutrophils # 8.09 10^3/uL (1.8-7.7); Neutrophils % 77.8 %; Nucleated Red Blood Cells % 0 %; Platelet Count 243 10^3/cmm (157-399); Red Blood Count 4.37 10^6/uL (3.85-5.65); Red Cell Distribution Width 12.6 % (12.1-15.1); White Blood Count 10.38 10^3/uL (3.29-11.43)
[2023-10-05 09:37] LABS: Charge for UA Resulting for Rev
[2023-10-05 09:54] LABS: Alanine Aminotransferase 17 U/L (0-33); Alkaline Phosphatase 84 U/L (35-105); Anion Gap 13.8 (5-19); Aspartate Amino Transferase 18 U/L (0-32); Blood Urea Nitrogen 13 mg/dL (8-23); Carbon Dioxide 26 mmol/L (22-29); Chloride 105 mmol/L (98-107); Creatinine Clr Calc Pharmacy 63.9642; Globulin 3.3 g/dL (1.3-4.6); Glomerular Filtration Rate 70.9 mL/min (90-130); Glucose 107 mg/dL (65-115); Osmolality Calculated 293 mOsm/kg (285-295); Potassium 3.8 mmol/L (3.5-5.1); Sodium 141 mmol/L (136-145); Total Bilirubin 0.4 mg/dL (0.15-1.2); Total Protein 7.3 g/dL (6.6-8.7)
[2023-10-05 10:00] LABS: Bacteria Urine None Seen /hpf; RBC Urine 0-2 /hpf (0-2); Squamous Epithelial Cell Urine 0-5 /hpf (0-5); WBC Urine 0-5 /hpf (0-5)
[2023-10-05 10:07] LABS: Bilirubin Urine Negative (Negative); Blood Urine Negative (Negative); Glucose Urine UA Negative (Normal); Ketones Urine Negative (Negative); Leukocyte Esterase Urine Negative (Negative); Nitrate Urine Negative (Negative); Protein Urine Negative (Negative); Specific Gravity, Urine 1.009 (1.005-1.030); Urine Appearance Clear (CLEAR); Urine Color Yellow (Yellow); Urobilinogen Urine 0.2 mg/dL (Negative); pH Urine 5.5 (5-7)
[2023-10-05] MEDS: iohexol 350 mg/mL 500 mL Btl (per mL) IV (10:15)
[2023-10-05 11:41] LABS: Lactic Sepsis W/Reflex 0.9 mmol/L (0.5-2.2)
[2023-10-05] MEDS: piperacillin-tazobactam 4.5 GM in sodium chloride 0.9% (plus) 50 ML IV (11:52)
[2023-10-05 12:59] VITALS: BP 143/87; PULSE 95; O2SAT 97
--- NOTE | 2023-10-05 13:07 | P.HP_ITS ---
Providers/Chief Complaint 2 Admitting Physician: Lan Cam MD Primary Care Provider: Yariel Sherwood DO Chief Complaint: Urinary History of Present Illness Lucy Combs is a 68 year old female who reports she has been ill since around September. She was concerned she had a UTI, or possibly even a kidney stone. She saw her primary care provider on September 28, and was prescribed Cipro. She was having abdominal discomfort, below the umbilicus in the left lower quadrant to midline. She reported some low-grade fevers at that time. She was able to eat without nausea, and was having bowel movements. She reports that over the last week it has not been improving, and in the last 2 days the pain had worsened and become more generalized in her lower abdomen. She continues to eat without nausea, and continues to have bowel movements with the last one being yesterday. No blood in stool. She has not run any fevers since starting Cipro. She denies any past history of diverticulitis. Review of Systems 2 General: Reports: 10 or more systems reviewed and unremarkable except in HPI and below Card: Denies: chest pain Resp: Denies: dyspnea GI: Reports: abdominal pain; Denies: nausea, vomiting or hematochezia Medications/Allergies Home Medications Medication Instructions Recorded Confirmed Last Taken Type aspirin 81 mg tablet,delayed 81 mg PO DAILY 09/30/19 10/05/23 10/04/23 History release calcium carbonate 600 mg-vitamin 1 cap PO DAILY 11/06/20 10/05/23 10/04/23 History D3 12.5 mcg (500 unit) capsule (Calcium 600 with Vitamin D3) montelukast 10 mg tablet 10 mg PO DAILY #30 tabs 06/12/23 10/05/23 10/04/23 Rx alprazolam 0.25 mg tablet (Xanax) 0.25 - 0.5 mg (1 - 2 x 0.25 mg) PO 08/10/23 10/05/23 Unknown Rx .qpm PRN anxiety, stress, sleep #60 tabs fluticasone propionate 50 1 spray intranasal DAILY PRN sinus 08/10/23 10/05/23 Unknown Rx mcg/actuation nasal congestion #16 grams spray,suspension (Flonase Allergy Relief) ciprofloxacin HCl 500 mg tablet 500 mg PO BID 7 days #14 tabs 09/29/23 10/05/2324 Rx (Cipro) fluconazole 100 mg tablet 100 mg PO Q72H #2 tabs 09/29/23 10/05/23 10/02/23 Rx (Diflucan) ketoconazole 2 % topical cream 1 applic topical BID PRN rash/skin 10/05/23 10/05/23 Unknown History irritation zolpidem 10 mg tablet (Ambien) 10 mg PO BEDTIME sleep 10/05/23 10/05/23 Unknown History Allergies Allergy/AdvReac Type Severity Reaction Status Date / Time No Known Allergies Allergy Verified 10/05/23 08:36 PFSH Acute 2 PFSH: Medical History (Updated 10/05/23 @ 13:15 by Lan Cam MD) Anxiety GERD (gastroesophageal reflux disease) Seasonal allergies Thyroid goiter History of hypothyroidism History of Lyme disease Insomnia Surgical History History of total hysterectomy 1984/severe endometriosis History of appendectomy 1969 History of back surgery 1977-- 4th and 5th lumbar disc removal-- denies any complications Family History Denies family history of Diabetes CAD (coronary artery disease) Clotting disorder Hyperlipidemia Chronic kidney disease (CKD) Bleeding disorder Cancer Hypertension Thyroid disease Stroke Social History Smoking and tobacco/nicotine status: never used tobacco/nicotine Substance/Drug Use: never Vitals/I&O/Wt Last Vital Signs Temp 98.3 F 10/05/23 08:28 Pulse 95 10/05/23 12:59 Resp 18 10/05/23 08:28 BP 143/87 10/05/23 12:59 Pulse Ox 97 10/05/23 12:59 O2 Del Method Room Air 10/05/23 12:59 Weight last 48 hrs Weight 76.204 kg Physical Exam 2 Narrative: General exam is a white female, no distress HEENT: Atraumatic normocephalic. Oropharynx clear. Neck is supple no lymphadenopathy thyromegaly Cardiovascular regular rate and rhythm, no murmur Lungs clear no wheezing or crackles Abdomen is soft, tender midline to the left, below the umbilicus. Bowel sounds are noted. exams deferred Extremities no sinus clubbing edema, scar on lower back is noted from prior surgery. Skin without rash Neuro no focal deficits Data 10/05/23 09:21 10/05/23 09:21 Other Labs: LFTs are normal Urinalysis 0-2 reds, 0-5 whites Calcium and albumin are normal Abdomen pelvis CT which I also reviewed demonstrates acute sigmoid diverticulitis. Intraluminal abscess is seen which is 2 x 2 cm, and no free air. Slight dilation of left ureter is noted. Micro: Microbiology 10/05/23 11:20 Blood Culture - Preliminary Blood SPECIMEN COLLECTED 10/05/23 11:17 Blood Culture - Preliminary Blood SPECIMEN COLLECTED A&P Assessment and plan (1) Acute diverticulitis: Patient has evidence of acute diverticulitis. Zosyn has been initiated by the emergency department, will continue Blood cultures been obtained Keep n.p.o. Hydration Pain control Surgical consult Note that this is associated with a diverticular abscess, intraluminal that is 2 x 2 cm. Surgery will evaluate. She was on Cipro as an outpatient, for concern of suspected UTI but did worsen on antibiotic. She was not on any antibiotic for anaerobic coverage. (2) Colonic diverticular abscess: See above Plan Multiple other medical problems as outlined by past medical history Full code Lovenox for DVT prophylaxis Attestations 2 Medical Necessity Statement*: Will require greater than 2 midnight stay for evaluation and treatment of diverticulitis with diverticular abscess Diagnoses Acute diverticulitis K57.92 Colonic diverticular abscess K57.20 Time Spent (min) 55
[2023-10-05 13:48] VITALS: BP 130/71; PULSE 87; RESP 16; TEMP 37; O2SAT 96
[2023-10-05 14:08] VITALS: BMI 29.7
[2023-10-05] MEDS: D5-NS 0.45% + KCL 20 mEq 20 MEQ/1,000 ML BAG 100 MEQ IV (14:58)
[2023-10-05] MEDS: pantoprazole 40 mg SDV IVP (14:58)
[2023-10-05] MEDS: enoxaparin 40 mg/0.4 mL Syringe SUBCUT (14:58)
[2023-10-05] MEDS: acetaminophen 325 mg Tablet 650 MG PO (15:08)
[2023-10-05 16:00] VITALS: BP 153/84; PULSE 93; RESP 16; TEMP 36.4; O2SAT 97
--- NOTE | 2023-10-05 16:06 | P.CONIM_ITS ---
Providers/Reason For Consult 2 Consulting Physician/Specialty*: Dr. Ike Lawson, /General Surgery Reason for Consult*: Complicated diverticulitis Attending Physician: Lan Cam MD Primary Care Provider: Yariel Sherwood DO History of Present Illness History of Present Illness Lucy Combs is a 68 year old female who presented to the hospital with a greater than 1 week history of left lower quadrant abdominal pain. Her pain is sharp and radiates to her back. Palpation makes pain worse. Nothing makes pain better. She was recently treated with ciprofloxacin for a UTI. CT the abdomen pelvis showed sigmoid diverticulitis complicated by a 2 cm abscess in the wall of the colon and stenosis at the area of inflammation. She has never had diverticulitis before. Most recent colonoscopy was within normal limits 8 years ago. Review of Systems 2 General: Reports: 10 or more systems reviewed and unremarkable except in HPI and below Medications/Allergies Home Medications Medication Instructions Recorded Confirmed Last Taken Type aspirin 81 mg tablet,delayed 81 mg PO DAILY 09/30/19 10/05/23 10/04/23 History release calcium carbonate 600 mg-vitamin 1 cap PO DAILY 11/06/20 10/05/23 10/04/23 History D3 12.5 mcg (500 unit) capsule (Calcium 600 with Vitamin D3) montelukast 10 mg tablet 10 mg PO DAILY #30 tabs 06/12/23 10/05/23 10/04/23 Rx alprazolam 0.25 mg tablet (Xanax) 0.25 - 0.5 mg (1 - 2 x 0.25 mg) PO 08/10/23 10/06/23 10/04/23 Rx .qpm PRN anxiety, stress, sleep #60 tabs fluticasone propionate 50 1 spray intranasal DAILY PRN sinus 08/10/23 10/05/23 Unknown Rx mcg/actuation nasal congestion #16 grams spray,suspension (Flonase Allergy Relief) ciprofloxacin HCl 500 mg tablet 500 mg PO BID 7 days #14 tabs 09/29/23 10/05/23 10/04/23 Rx (Cipro) fluconazole 100 mg tablet 100 mg PO Q72H #2 tabs 09/29/23 10/05/23 10/02/23 Rx (Diflucan) ketoconazole 2 % topical cream 1 applic topical BID PRN rash/skin 10/05/23 10/05/23 Unknown History irritation zolpidem 10 mg tablet (Ambien) 10 mg PO BEDTIME sleep 10/05/23 10/05/23 Unknown History Allergies Allergy/AdvReac Type Severity Reaction Status Date / Time No Known Allergies Allergy Verified 10/05/23 08:36 Current Medications Generic Name Dose Route Start Last Admin Trade Name Freq PRN Reason Stop Dose Admin Acetaminophen 650 mg 10/05/23 14:51 10/05/23 15:08 Acetaminophen 325 Mg Tablet PO 650 mg Q6H PRN Administration MILD PAIN Aspirin 81 mg 10/06/23 09:00 10/06/23 08:31 Aspirin 81 Mg Ec Tablet PO 81 mg DAILY ANH Administration Enoxaparin Sodium 40 mg 10/05/23 13:48 10/05/23 14:58 Enoxaparin 40 Mg/0.4 Ml Syringe SUBCUT 40 mg Q24H ANH Administration Potassium Chloride/Dextrose/Sod Cl 20 meq in 1,000 mls @ 75 mls/hr 10/05/23 13:48 10/06/23 00:03 D5-Ns 0.45% + Kcl 20 Meq IV 100 mls/hr .[id number] ANH Administration Piperacillin Sod/Tazobactam 50 mls @ 12.5 mls/hr 10/05/23 20:00 10/06/23 08:04 Sod 3.375 gm/ Sodium Chloride IV Infused Q8H ANH Infusion Protocol Montelukast Sodium 10 mg 10/06/23 09:00 10/06/23 08:31 Montelukast Sodium 10 Mg Tablet PO 10 mg DAILY ANH Administration Ondansetron HCl 4 mg 10/05/23 13:48 10/06/23 05:08 Ondansetron 2 Mg/Ml Sdv 2 Ml IVP 4 mg Q6H PRN Administration NAUSEA AND VOMITING Pantoprazole Sodium 40 mg 10/05/23 13:48 10/05/23 14:58 Pantoprazole 40 Mg Sdv IVP 40 mg Q24H ANH Administration Zolpidem Tartrate 10 mg 10/05/23 21:00 10/05/23 21:20 Zolpidem 5 Mg Tablet PO 10 mg BEDTIME ANH Administration PFSH Acute 2 PFSH: Medical History Anxiety GERD (gastroesophageal reflux disease) Seasonal allergies Thyroid goiter History of hypothyroidism History of Lyme disease Insomnia Surgical History History of total hysterectomy 1984/severe endometriosis History of appendectomy 1969 History of back surgery 1977-- 4th and 5th lumbar disc removal-- denies any complications Family History Denies family history of Diabetes CAD (coronary artery disease) Clotting disorder Hyperlipidemia Chronic kidney disease (CKD) Bleeding disorder Cancer Hypertension Thyroid disease Stroke Social History Smoking and tobacco/nicotine status: never used tobacco/nicotine Substance/Drug Use: never Vitals/I&O/Wt Last Vital Signs Temp 98.3 F 10/06/23 07:16 Pulse 91 10/06/23 07:16 Resp 16 10/06/23 07:16 BP 109/65 10/06/23 07:16 Pulse Ox 95 10/06/23 07:16 O2 Del Method Room Air 10/06/23 07:16 10/05/23 10/06/23 10/06/23 22:59 06:59 14:59 Intake Total 50 / 50 1198.333 / 1248.333 50 / 50 Balance 50 / 50 1198.333 / 1248.333 50 / 50 Weight last 48 hrs Weight 173 lb 6.4 oz Weight 167 lb 9 oz Weight 168 lb Physical Exam 2 Narrative: General : Patient is well developed , no acute distress, oriented x3 Head : Normal cephalic, a-traumatic. Ears : Pinnae and external canal are normal. Hearing is normal. Eyes : PERRLA, Sclera and injection are normal. No conjunctival discharge. Nose : Mucous membranes are without erythema. Throat : buccal mucosa is normal, gums are without significant recession or hypertrophy. Lungs : Equal chest rise bilaterally, no use of accessory muscles, trachea is midline. Cor : Rate and rhythm are normal. Abdomen : Soft, ND, tender to palpation left lower quadrant, no g/r/m Extremities : No edema, no cyanosis or clubbing, dorsalis pedis pulses are present bilaterally, non-tender to palpation of calves. Upper extremities are normal bilaterally. Back : non-tender to palpation, no CVA tenderness. Neuro : CN II - XII intact, Upper and lower extremities have equal and full strength Data 10/06/23 05:12 10/06/23 05:12 Micro: Microbiology 10/05/23 11:20 Blood Culture - Preliminary Blood SPECIMEN COLLECTED 10/05/23 11:17 Blood Culture - Preliminary Blood SPECIMEN COLLECTED A&P Assessment and plan (1) Diverticulitis of large intestine with complication: (2) Colonic diverticular abscess: (3) Stenosis colon: Plan N.p.o. IV antibiotics If her pain improves tomorrow we will start with clear liquids She requires at least 48 hours of IV antibiotics prior to being discharged Diagnostic colonoscopy in 4 to 6 weeks followed by sigmoidectomy. I will refer her to colorectal surgery in [place] for possible robotic sigmoidectomy Medical management per hospitalist Coding Level of Care Code 78258 Diagnoses Diverticulitis of large intestine with complication K57.32 Colonic diverticular abscess K57.20 Stenosis colon K56.699
[2023-10-05 20:00] VITALS: BP 143/87; PULSE 83; RESP 17; TEMP 36.9; O2SAT 95
[2023-10-05] MEDS: piperacillin-tazobactam 3.375 GM in sodium chloride 0.9% (plus) 50 ML IV (20:41)
[2023-10-05] MEDS: zolpidem 5 mg Tablet 10 MG PO (21:20)
[2023-10-05] MEDS: ALPRAZolam 0.5 mg Tablet 0.25 MG PO (21:20)
[2023-10-06] VITALS (8 sets, daily range): BP systolic 102–118; BP diastolic 62–75; PULSE 72–91; RESP 14–18; TEMP 36.7–37.1; O2SAT 94–97
[2023-10-06] MEDS: D5-NS 0.45% + KCL 20 mEq 20 MEQ/1,000 ML BAG 100 MEQ IV (00:03)
[2023-10-06] MEDS: morphine 4 mg/mL SDV 1 mL IVP (00:03)
[2023-10-06] MEDS: piperacillin-tazobactam 3.375 GM in sodium chloride 0.9% (plus) 50 ML IV ×3 (03:48→20:31)
[2023-10-06] MEDS: ondansetron 2 mg/ML SDV 2 mL 4 MG IVP (05:08)
[2023-10-06 05:24] LABS: Basophils % 0.3 %; Eosinophils # 0.1 10^3/uL (0.0-0.8); Eosinophils % 1.2 %; Hematocrit 39.2 % (36-47); Lymphocytes % 10.5 %; Mean Corpuscular HGB Conc 32.1 g/dL (30-55); Mean Corpuscular Volume 99.5 fl (85-98); Mean Platelet Volume 9.8 fL (7.4-10.4); Neutrophils % 77.7 %; Nucleated Red Blood Cells % 0 %; Platelet Count 187 10^3/cmm (157-399); Red Blood Count 3.94 10^6/uL (3.85-5.65); Red Cell Distribution Width 12.5 % (12.1-15.1); White Blood Count 9.79 10^3/uL (3.29-11.43)
[2023-10-06 05:46] LABS: Alanine Aminotransferase 13 U/L (0-33); Albumin Level 3.3 g/dL (3.5-5.2); Alkaline Phosphatase 69 U/L (35-105); Anion Gap 14.4 (5-19); Aspartate Amino Transferase 13 U/L (0-32); Blood Urea Nitrogen 9 mg/dL (8-23); Calcium 8.5 mg/dL (8.5-10.5); Carbon Dioxide 23 mmol/L (22-29); Chloride 105 mmol/L (98-107); Creatinine Clr Calc Pharmacy 63.8819; Glomerular Filtration Rate 82.7 mL/min (90-130); Glucose 145 mg/dL (65-115); Osmolality Calculated 287 mOsm/kg (285-295); Potassium 4.4 mmol/L (3.5-5.1); Sodium 138 mmol/L (136-145); Total Bilirubin 0.5 mg/dL (0.15-1.2); Total Protein 6.3 g/dL (6.6-8.7)
--- NOTE | 2023-10-06 08:15 | P.PN_ITS ---
Subjective 2 Subjective: Patient seen and examined. She reports that her abdominal pain is improved. Reports passing flatus but no bowel movement Vitals/I&O/Wt Last Vital Signs Temp 98.2 F 10/06/23 11:19 Pulse 78 10/06/23 11:19 Resp 16 10/06/23 11:19 BP 103/62 10/06/23 11:19 Pulse Ox 95 10/06/23 11:19 O2 Del Method Room Air 10/06/23 11:19 10/05/23 10/06/23 10/06/23 22:59 06:59 14:59 Intake Total 50 / 50 1198.333 / 0054.113 6941 / 1050 Balance 50 / 50 1198.333 / 1102.202 0152 / 1050 Weight last 48 hrs Weight 173 lb 6.4 oz Weight 167 lb 9 oz Weight 168 lb Physical Exam 2 Narrative: General: No acute distress, awake alert and oriented x 3 Abdomen: Soft, nondistended, mild left lower quadrant tenderness, no guarding or rebound Data 10/06/23 05:12 10/06/23 05:12 Micro: Microbiology 10/05/23 11:20 Blood Culture - Preliminary Blood NEGATIVE TO DATE 10/05/23 11:17 Blood Culture - Preliminary Blood NEGATIVE TO DATE A&P Assessment and plan (1) Diverticulitis of large intestine with complication: (2) Colonic diverticular abscess: (3) Stenosis colon: Plan Clear liquid diet IV antibiotics If her pain improves tomorrow we will start with clear liquids She requires at least 48 hours of IV antibiotics prior to being discharged Diagnostic colonoscopy in 4 to 6 weeks followed by sigmoidectomy. I will refer her to colorectal surgery in [place] for possible robotic sigmoidectomy Medical management per hospitalist Attestations 2 Medical Necessity Statement*: Per primary Coding Level of Care Code 76074 Diagnoses Diverticulitis of large intestine with complication K57.32 Colonic diverticular abscess K57.20 Stenosis colon K56.699
--- NOTE | 2023-10-06 08:17 | P.PN_ITS ---
Subjective 2 Subjective: Feeling better. Less abdominal pain. Passing gas. No bowel movement last night. Discussed briefly with surgery, clear liquids okay to initiate today and plan for colonoscopy in 4 to 6 weeks, referral to colorectal surgeon for robotic sigmoidectomy in the future. Medications: Reviewed: Yes Vitals/I&O/Wt Last Vital Signs Temp 98.3 F 10/06/23 07:16 Pulse 91 10/06/23 07:16 Resp 16 10/06/23 07:16 BP 109/65 10/06/23 07:16 Pulse Ox 95 10/06/23 07:16 O2 Del Method Room Air 10/06/23 07:16 10/05/23 10/06/23 10/06/23 22:59 06:59 14:59 Intake Total 50 / 50 1198.333 / 1248.333 50 / 50 Balance 50 / 50 1198.333 / 1248.333 50 / 50 Weight last 48 hrs Weight 78.653 kg Weight 76.005 kg Weight 76.204 kg Physical Exam 2 Narrative: General exam is a white female, no distress Neck is supple no lymphadenopathy thyromegaly Cardiovascular regular rate and rhythm, no murmur Lungs clear no wheezing or crackles Abdomen is soft, tender midline to the left, below the umbilicus. Bowel sounds are noted. Less pain than yesterday Extremities no sinus clubbing edema, scar on lower back is noted from prior surgery. Data 10/06/23 05:12 10/06/23 05:12 Micro: Microbiology 10/05/23 11:20 Blood Culture - Preliminary Blood SPECIMEN COLLECTED 10/05/23 11:17 Blood Culture - Preliminary Blood SPECIMEN COLLECTED A&P Assessment and plan (1) Acute diverticulitis: Patient has evidence of acute diverticulitis. Zosyn has been initiated by the emergency department, will continue Blood cultures been obtained, pending Clear liquids to start today Continue hydration, reduce to 75 cc an hour Pain control changed to Dilaudid, reduce dose. She reports she did not do well with morphine, making her nauseated Surgical consult appreciated Note that this is associated with a diverticular abscess, intraluminal that is 2 x 2 cm. Treating medically for now, with likely planned sigmoidectomy in the future She was on Cipro as an outpatient, for concern of suspected UTI but did worsen on antibiotic. She was not on any antibiotic for anaerobic coverage. (2) Colonic diverticular abscess: See above Plan Multiple other medical problems as outlined by past medical history Full code Lovenox for DVT prophylaxis Attestations 2 Medical Necessity Statement*: Needs continued hospitalization for IV antibiotics secondary to diverticulitis with abscess Diagnoses Acute diverticulitis K57.92 Colonic diverticular abscess K57.20 Time Spent (min) 24
[2023-10-06] MEDS: montelukast sodium 10 mg Tablet PO (08:31)
[2023-10-06] MEDS: aspirin 81 mg EC Tablet PO (08:31)
--- NOTE | 2023-10-06 08:57 | PC.CHAP ---
Pastoral Care Encounter/Spiritual Assessment Type of Contact [] Declined credit control clerk visit [] Patient/Family/Request visit [] Outpatient visit [] Follow-up visit [] Physician referral [] Code/Alert [] Routine visit [] Staff referral [] Actively dying [] Patient sleeping [] Family support [] [X] Out of room [] Palliative care [] [] Receiving care in room [] Pre-surgical visit [] Trauma [] Long length of stay [] ICU visit [] Other: Relational/Emotional Strength [] Patient feels connected with others/family/visitors/staff [] Distress [] Loneliness/isolation [] Abandonment Spirituality of Patient [] Person of Kassie [] Attends Religion of their Kassie [] Believes in Prayer [] Reads Bible or Amish materials [] There are 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 [] Prayer [] Active listening [] Non-anxious presence [] Spiritual/emotional support [] Crisis/trauma care [] Spiritual counseling [] Bereavement support [] Provided bereavement packet [] Provided Bible/devotional materials [] Provided toy/stuffed animal, coloring book to patient or family member [] Provided Communion [] Anointing/[place] [] Salvation [] Completed spiritual assessment [] Other: Impact on Illness or Injury [] Angry [] Fearful [] Anxious [] Often cries [] Exhaustion [] Unable to work [] Unable to attend cheondoism [] Unable to walk/stand [] Unable to read [] Unable to drive [] Unable to eat/drink [] Unable to sleep [] Unable to be with family [] Patient intubated [] Other: Summary Time spent with patient
--- NOTE | 2023-10-06 10:05 | PC.SOCIAL ---
IMM Update pg 2 of IMM updated and reviewed w/ patient. Copy provided and copy dated, initialed and placed in chart.
[2023-10-06] MEDS: D5-NS 0.45% + KCL 20 mEq 20 MEQ/1,000 ML BAG 75 MEQ IV (10:41)
[2023-10-06] MEDS: enoxaparin 40 mg/0.4 mL Syringe SUBCUT (13:30)
[2023-10-06] MEDS: pantoprazole 40 mg SDV IVP (13:30)
[2023-10-06] MEDS: ALPRAZolam 0.5 mg Tablet 0.25 MG PO (21:34)
[2023-10-06] MEDS: zolpidem 5 mg Tablet 10 MG PO (21:34)
[2023-10-07] VITALS (7 sets, daily range): BP systolic 100–119; BP diastolic 57–75; PULSE 64–84; RESP 13–18; TEMP 36.6–36.8; O2SAT 94–98
[2023-10-07] MEDS: D5-NS 0.45% + KCL 20 mEq 20 MEQ/1,000 ML BAG 75 MEQ IV ×2 (00:47→13:51)
[2023-10-07 02:50] LABS: Basophils % 0.8 %; Eosinophils # 0.2 10^3/uL (0.0-0.8); Eosinophils % 3.4 %; Hematocrit 37.7 % (36-47); Lymphocytes # 1.8 10^3/uL (0.8-4.8); Lymphocytes % 34.1 %; Mean Corpuscular Hemoglobin 31.1 pg (27-33); Mean Corpuscular Volume 100.3 fl (85-98); Mean Platelet Volume 10.1 fL (7.4-10.4); Monocytes # 0.7 10^3/uL (0.2-0.9); Monocytes % 13.5 %; Neutrophils # 2.52 10^3/uL (1.8-7.7); Nucleated Red Blood Cells % 0 %; Platelet Count 193 10^3/cmm (157-399); Red Blood Count 3.76 10^6/uL (3.85-5.65); Red Cell Distribution Width 12.6 % (12.1-15.1); White Blood Count 5.25 10^3/uL (3.29-11.43)
[2023-10-07] MEDS: piperacillin-tazobactam 3.375 GM in sodium chloride 0.9% (plus) 50 ML IV ×3 (03:10→20:52)
[2023-10-07 03:15] LABS: Blood Urea Nitrogen 7 mg/dL (8-23); Calcium 8.7 mg/dL (8.5-10.5); Carbon Dioxide 27 mmol/L (22-29); Chloride 105 mmol/L (98-107); Creatinine Clr Calc Pharmacy 64.9761; Glomerular Filtration Rate 70.9 mL/min (90-130); Glucose 118 mg/dL (65-115); Osmolality Calculated 289 mOsm/kg (285-295); Sodium 140 mmol/L (136-145)
[2023-10-07 03:16] LABS: Anion Gap 12.3 (5-19); Potassium 4.3 mmol/L (3.5-5.1)
[2023-10-07] MEDS: aspirin 81 mg EC Tablet PO (09:04)
[2023-10-07] MEDS: montelukast sodium 10 mg Tablet PO (09:04)
--- NOTE | 2023-10-07 09:33 | P.PN_ITS ---
Subjective 2 Subjective: Patient seen and examined. Pain somewhat improved but still no bowel movement Vitals/I&O/Wt Last Vital Signs Temp 97.9 F 10/07/23 07:20 Pulse 70 10/07/23 07:20 Resp 18 10/07/23 07:20 BP 110/70 10/07/23 07:20 Pulse Ox 94 10/07/23 07:20 O2 Del Method Room Air 10/07/23 07:20 10/06/23 10/07/23 10/07/23 22:59 06:59 14:59 Intake Total 440 / 1540 1050 / 2590 290 / 290 Balance 440 / 1540 1050 / 2590 290 / 290 Weight last 48 hrs Weight 176 lb 8 oz Weight 173 lb 6.4 oz Weight 167 lb 9 oz Physical Exam 2 Narrative: General: No acute distress, awake alert and oriented x 3 Abdomen: Soft, nondistended, mild left lower quadrant tenderness Data 10/07/23 02:14 10/07/23 02:14 Micro: Microbiology 10/05/23 11:20 Blood Culture - Preliminary Blood NEGATIVE TO DATE 10/05/23 11:17 Blood Culture - Preliminary Blood NEGATIVE TO DATE A&P Assessment and plan (1) Diverticulitis of large intestine with complication: (2) Colonic diverticular abscess: (3) Stenosis colon: Plan Full liquid diet IV antibiotics If her pain improves tomorrow we will start with clear liquids She requires at least 48 hours of IV antibiotics prior to being discharged Diagnostic colonoscopy in 4 to 6 weeks followed by sigmoidectomy. I will refer her to colorectal surgery in [place] for possible robotic sigmoidectomy I would like her to have a bowel movement prior to discharge due to the stenosis in her colon. I want to make sure her stool can get past it Medical management per hospitalist Attestations 2 Medical Necessity Statement*: Per primary Coding Level of Care Code 63420 Diagnoses Diverticulitis of large intestine with complication K57.32 Colonic diverticular abscess K57.20 Stenosis colon K56.699
[2023-10-07] MEDS: enoxaparin 40 mg/0.4 mL Syringe SUBCUT (14:39)
[2023-10-07] MEDS: pantoprazole 40 mg SDV IVP (14:39)
--- NOTE | 2023-10-07 14:48 | P.PN_ITS ---
Subjective 2 Subjective: Patient reports overall she is feeling better. She has not had a bowel movement yet but has not eaten much solid food the last several days. Denies fevers, chills, and diaphoresis. Patient is up ambulating. She does note that she is usually very active and being admitted the hospital is very atypical for her. Otherwise denies other new complaints. Medications: Reviewed: Yes Vitals/I&O/Wt Last Vital Signs Temp 98.1 F 10/07/23 12:00 Pulse 82 10/07/23 12:00 Resp 18 10/07/23 12:00 BP 109/69 10/07/23 12:00 Pulse Ox 95 10/07/23 12:00 O2 Del Method Room Air 10/07/23 12:00 10/06/23 10/07/23 10/07/23 22:59 06:59 14:59 Intake Total 440 / 1540 1050 / 2590 1750 / 1750 Balance 440 / 1540 1050 / 2590 1750 / 1750 Weight last 48 hrs Weight 80.059 kg Weight 78.653 kg Physical Exam 2 Narrative: General: Patient is awake and alert. Very pleasant. Head: Normocephalic. Atraumatic. EOM intact. Neck: No JVD. Cardiovascular: RRR. No gallops. No murmurs. No peripheral edema. Lungs: Clear to auscultation, no use of accessory muscles, no crackles or wheezes. Skin: No jaundice. No rashes. Abdomen: Normal bowel sounds. Some slight tenderness palpation in the lower quadrants. Genito Urinary: Genital exam not performed since complaints not related. Rectal: Rectal exam not performed since no symptoms indicated blood loss. Extremities: No cyanosis or clubbing. Musculoskeletal: No swollen or erythematous joints. Neurological: Moves all 4 extremities. No myoclonus. Data 10/07/23 02:14 10/07/23 02:14 Micro: Microbiology 10/05/23 11:20 Blood Culture - Preliminary Blood NEGATIVE TO DATE 10/05/23 11:17 Blood Culture - Preliminary Blood NEGATIVE TO DATE A&P Assessment and plan (1) Acute diverticulitis: Acute complicated diverticulitis with 2 x 2 cm intraluminal abscess Follow blood cultures Continue Zosyn Diet has been advanced to full liquid diet General Surgery is following Analgesics as needed Antiemetics as needed Continue IV fluids (2) Colonic diverticular abscess: Management as above Plan DVT prophylaxis: Lovenox Attestations 2 Medical Necessity Statement*: Patient requires ongoing hospitalization for IV fluids, IV antibiotics, monitoring of bowel function, general surgery expertise, and supportive care. Coding Level of Care Code Acute Code for g Fwd Diagnoses Acute diverticulitis K57.92 Colonic diverticular abscess K57.20
[2023-10-07] MEDS: docusate sodium 100 mg Capsule PO (18:09)
[2023-10-07] MEDS: polyethylene glycol 3350 Pkt 17 gm PO (18:09)
[2023-10-07] MEDS: zolpidem 5 mg Tablet 10 MG PO (20:54)
[2023-10-07] MEDS: ALPRAZolam 0.5 mg Tablet 0.25 MG PO (20:54)
[2023-10-08] VITALS: BP 103/69; PULSE 73; RESP 14; TEMP 36.5; O2SAT 96
[2023-10-08] MEDS: piperacillin-tazobactam 3.375 GM in sodium chloride 0.9% (plus) 50 ML IV (03:27)
[2023-10-08] MEDS: D5-NS 0.45% + KCL 20 mEq 20 MEQ/1,000 ML BAG 75 MEQ IV (03:28)
[2023-10-08] MEDS: acetaminophen 325 mg Tablet 650 MG PO (03:32)
[2023-10-08 03:55] VITALS: BP 127/66; PULSE 71; RESP 15; TEMP 36.5; O2SAT 97
[2023-10-08 07:42] VITALS: BP 118/74; PULSE 58; RESP 18; TEMP 36.4; O2SAT 97
[2023-10-08] MEDS: aspirin 81 mg EC Tablet PO (09:25)
[2023-10-08] MEDS: montelukast sodium 10 mg Tablet PO (09:25)
--- NOTE | 2023-10-08 10:31 | P.PN_ITS ---
Subjective 2 Subjective: Patient seen and examined. Pain much improved. Positive BM Vitals/I&O/Wt Last Vital Signs Temp 97.6 F 10/08/23 07:42 Pulse 58 L 10/08/23 07:42 Resp 18 10/08/23 07:42 BP 118/74 10/08/23 07:42 Pulse Ox 97 10/08/23 07:42 O2 Del Method Room Air 10/08/23 07:42 10/07/23 10/08/23 10/08/23 22:59 06:59 14:59 Intake Total 1111.25 / 2861.25 545 / 3406.25 530 / 530 Balance 1111.25 / 2861.25 545 / 3406.25 530 / 530 Weight last 48 hrs Weight 180 lb 1.6 oz Weight 176 lb 8 oz Physical Exam 2 Narrative: General: No acute distress, awake alert and oriented x 3 Abdomen: Soft, nondistended, minimal left lower quadrant tenderness Data 10/07/23 02:14 10/07/23 02:14 A&P Assessment and plan (1) Diverticulitis of large intestine with complication: (2) Colonic diverticular abscess: (3) Stenosis colon: Plan Soft diet IV antibiotics Augmentin 875 but in her discharge to complete a 14-day course of antibiotics Diagnostic colonoscopy in 4 to 6 weeks followed by sigmoidectomy. I will refer her to colorectal surgery in [place] for possible robotic sigmoidectomy Surgically stable for discharge Follow-up with me placed in discharge Medical management per hospitalist Attestations 2 Medical Necessity Statement*: Per primary Coding Level of Care Code 53076 Diagnoses Diverticulitis of large intestine with complication K57.32 Colonic diverticular abscess K57.20 Stenosis colon K56.699
[2023-10-08 11:52] VITALS: BP 120/78; PULSE 73; RESP 18; TEMP 36.7; O2SAT 95
--- NOTE | 2023-10-08 13:16 | PM.DCS ---
Discharge Providers Date of Admission: 10/05/23 12:50 Date of Discharge: October 08, 2023 Attending Provider at Admission: Lan Cam MD Attending Provider at Discharge: Jose Kay MD Consults: General Surgery Primary Care Provider: Yariel Sherwood DO Diagnoses at Discharge Discharge Diagnosis (1) Diverticulitis of large intestine with complication: Status: Acute (2) Colonic diverticular abscess: Status: Acute (3) Stenosis colon: Status: Acute Reason for Visit Reason for Visit: Urinary Hospital Course Hospital Course Lucy Combs is a 68-year-old female with a past medical history significant for GERD, hypothyroidism, and insomnia who presented with abdominal pain, found to have acute complicated diverticulitis with intraluminal 2x2 cm abscess formation. She was treated with IV Zosyn with improvement in symptomatology. She was rotated to Augmentin. She will complete at least 14 days of antibiotic therapy. General surgery, Dr Lawson, consulted and followed. She will follow-up with general surgery clinic as outpatient for consideration of colonoscopy. General surgery is also provided referral to colorectal surgery for consideration of sigmoidectomy. Patient discharged home in stable condition. She is to follow-up with her PCP within 1 week for further care. Physical Exam Narrative: General: Patient is awake and alert. Head: Normocephalic. Atraumatic. EOM intact. Neck: No JVD. Cardiovascular: RRR. No gallops. No murmurs. Lungs: Clear to auscultation, no use of accessory muscles, no crackles or wheezes. Skin: No jaundice. No rashes. Abdomen: Normal bowel sounds. Abdomen soft. Extremities: No cyanosis or clubbing. Musculoskeletal: No swollen or erythematous joints. Neurological: Moves all 4 extremities. No myoclonus. Discharge Data Studies Completed and Pending Completed Studies During Hospitalization Category Date Time Status CT abdomen pelvis w con* [id number] Stat Cat Scan 10/05/23 08:59 Completed Pending at discharge Category Date Time Status Blood Culture Stat Lab 10/05/23 11:20 Results Radiology Impressions Abdomen/Pelvis CT 10/05/23 08:59 IMPRESSION: 1. Advanced acute sigmoid diverticulitis. Large amount of pericolonic stranding with wall thickening and narrowing of the lumen. 2. Intramural sigmoid abscess is developing. There is a very thick wall collection with a small amount of air centrally. The developing abscess measures 2.0 x 2.0 cm. 3. No free air. 4. No renal obstruction or calcifications. There is very slight dilatation of the LEFT ureter which may be result of the ureter closely associated with the acute diverticular process in the pelvis causing a mild aperistalsis. There is no obstruction of the kidney. 5. Diffuse constipation. Laboratory Results WBC 5.25 10^3/uL (3.29-11.43) 10/07/23 02:14 RBC 3.76 10^6/uL (3.85-5.65) L 10/07/23 02:14 Hgb 11.70 g/dL (11.27-16.99) 10/07/23 02:14 Hct 37.7 % (36-47) 10/07/23 02:14 MCV 100.3 fl (85-98) H 10/07/23 02:14 MCH 31.1 pg (27-33) 10/07/23 02:14 MCHC 31.0 g/dL (30-55) 10/07/23 02:14 RDW 12.6 % (12.1-15.1) 10/07/23 02:14 Plt Count 193 10^3/cmm (157-399) 10/07/23 02:14 MPV 10.1 fL (7.4-10.4) 10/07/23 02:14 Neut % (Auto) 48.0 % 10/07/23 02:14 Lymph % (Auto) 34.1 % 10/07/23 02:14 [place] % (Auto) 13.5 % 10/07/23 02:14 Eos % (Auto) 3.4 % 10/07/23 02:14 Baso % (Auto) 0.8 % 10/07/23 02:14 Neut # (Auto) 2.52 10^3/uL (1.8-7.7) 10/07/23 02:14 Lymph # (Auto) 1.8 10^3/uL (0.8-4.8) 10/07/23 02:14 [place] # (Auto) 0.7 10^3/uL (0.2-0.9) 10/07/23 02:14 Eos # (Auto) 0.2 10^3/uL (0.0-0.8) 10/07/23 02:14 Baso # (Auto) 0.0 10^3/uL (0.0-0.1) 10/07/23 02:14 Nucleated RBC % (auto) 0 % 10/07/23 02:14 Nucleated RBCs # 0.0 /100WBC 10/07/23 02:14 Sodium 140 mmol/L (136-145) 10/07/23 02:14 Potassium 4.3 mmol/L (3.5-5.1) 10/07/23 02:14 Chloride 105 mmol/L (98-107) 10/07/23 02:14 Carbon Dioxide 27 mmol/L (22-29) 10/07/23 02:14 Anion Gap 12.3 (5-19) 10/07/23 02:14 BUN 7 mg/dL (8-23) L 10/07/23 02:14 Creatinine 0.8 mg/dL (0.5-0.9) 10/07/23 02:14 GFR Calculation 70.9 mL/min (90-130) L 10/07/23 02:14 Glucose 118 mg/dL (65-115) H 10/07/23 02:14 Calculated Osmolality 289 mOsm/kg (285-295) 10/07/23 02:14 Lactic Acid 0.9 mmol/L (0.5-2.2) 10/05/23 11:17 Calcium 8.7 mg/dL (8.5-10.5) 10/07/23 02:14 Total Bilirubin 0.5 mg/dL (0.15-1.2) 10/06/23 05:12 AST 13 U/L (0-32) 10/06/23 05:12 ALT 13 U/L (0-33) 10/06/23 05:12 Alkaline Phosphatase 69 U/L (35-105) 10/06/23 05:12 Total Protein 6.3 g/dL (6.6-8.7) L 10/06/23 05:12 Albumin 3.3 g/dL (3.5-5.2) L 10/06/23 05:12 Globulin 3.0 g/dL (1.3-4.6) 10/06/23 05:12 Urine Color Yellow (Yellow) 10/05/23 09:18 Urine Appearance Clear (CLEAR) 10/05/23 09:18 Urine pH 5.5 (5-7) 10/05/23 09:18 Ur Specific [place] 1.009 (1.005-1.030) 10/05/23 09:18 Urine Protein Negative (Negative) 10/05/23 09:18 Urine Glucose (UA) Negative (Normal) 10/05/23 09:18 Urine Ketones Negative (Negative) 10/05/23 09:18 Urine Blood Negative (Negative) 10/05/23 09:18 Urine Nitrate Negative (Negative) 10/05/23 09:18 Urine Bilirubin Negative (Negative) 10/05/23 09:18 Urine Urobilinogen 0.2 mg/dL (Negative) 10/05/23 09:18 Ur Leukocyte Esterase Negative (Negative) 10/05/23 09:18 Urine RBC 0-2 /hpf (0-2) 10/05/23 09:18 Urine WBC 0-5 /hpf (0-5) 10/05/23 09:18 Ur Squamous Epith Cells 0-5 /hpf (0-5) 10/05/23 09:18 Amorphous Sediment Not Reportable 10/05/23 09:18 Urine Bacteria None seen /hpf (NONE) 10/05/23 09:18 Hyaline Casts 0.40 /lpf 10/05/23 09:18 Vitals Last Vital Signs Temp 98.1 F 10/08/23 11:52 Pulse 73 10/08/23 11:52 Resp 18 10/08/23 11:52 BP 120/78 10/08/23 11:52 Pulse Ox 95 10/08/23 11:52 O2 Del Method Room Air 10/08/23 11:52 Discharge Plan Discharge Patient Disposition: Home Condition: Stable Prescriptions: New amoxicillin-pot clavulanate 875-125 mg tablet 1 tab PO BID Qty: 24 0RF Continued aspirin 81 mg tablet,delayed release (DR/EC) 81 mg PO DAILY calcium carbonate-vitamin D3 [Calcium 600 with Vitamin D3] 600 mg(1,500mg) -500 unit capsule 1 cap PO DAILY montelukast 10 mg tablet 10 mg PO DAILY Qty: 30 11RF alprazolam [Xanax] 0.25 mg tablet 0.25 - 0.5 mg PO .qpm PRN (Reason: anxiety, stress, sleep) Qty: 60 3RF fluticasone propionate [Flonase Allergy Relief] 50 mcg/actuation spray,suspension 1 spray INTRANASAL DAILY PRN (Reason: sinus congestion) Qty: 16 5RF Rx Instructions: administer into each nostril fluconazole [Diflucan] 100 mg tablet 100 mg PO Q72H Qty: 2 0RF Ambien 10 mg tablet 10 mg PO BEDTIME ketoconazole 2 % cream 1 applic TOPICAL BID PRN (Reason: rash/skin irritation) Discontinued ciprofloxacin HCl [Cipro] 500 mg tablet 500 mg PO BID 7 Days Qty: 14 0RF Discharge Orders: Discharge Order (Routine); Ordered 10/08/23 Ordered By: Jose Kay Referrals: Jose Gaspar [Other] (New referral in 6 weeks. We have notified your physician's clinic of the need for a follow-up appointment to be scheduled. If you have not heard from them within the next 2 business days, please call them directly. ) Ike Lawson DO [Physician] - 2 weeks (We have notified Dr. Lawson's clinic of the need for a follow-up appointment to be scheduled. If you have not heard from them within the next 2 business days, please call them directly. ) Yariel Sherwood DO [Primary Care Provider] - 4-7 days (We have notified your physician's clinic of the need for a follow-up appointment to be scheduled. If you have not heard from them within the next 2 business days, please call them directly. ) Discharge Diet: GI Soft Discharge Activity: Increase activity as tolerated Patient Instructions: Opioid Safety Activity Restrictions/Additional Instructions: 1. Take medications as prescribed. 2. Follow-up with primary care as well as general surgery clinic. Discharge Attestations Time Spent in Discharge Care*: greater than 30 min Quality Metrics Clinical Quality Measures [ No reported AMI, CVA or VTE this stay] Coding Level of Care Code Acute Code for Chg Fwd Diagnoses Diverticulitis of large intestine with complication K57.32 Colonic diverticular abscess K57.20 Stenosis colon K56.699
[2023-10-08 15:38] VITALS: BP 128/79; PULSE 71; RESP 18; TEMP 36.8; O2SAT 96
[2023-10-08 15:45] VITALS: BP 128/79; PULSE 71; RESP 18; TEMP 36.8; O2SAT 96
--- NOTE | 2023-10-08 15:48 | PC.NURSE ---
Discussed discharge, follow up appointments and medications with patient. Discussed the GI soft diet and patient verbalized understanding of all discharge instructions.
== END 2023-10-08 15:35 | disposition home or self-care (01) | DRG 392 ==
LOC: ER 08:40 → MEDSURG 12:50
PROVIDERS: Admitting Provider Internal Medicine; Emergency Provider Family Medicine; PCP Family Medicine; Visit Provider Internal Medicine
DX: K57.20 Diverticulitis of large intestine with perforation and abscess without bleeding (principal); K56.699 Other intestinal obstruction unspecified as to partial versus complete obstruction; G47.00 Insomnia, unspecified; F41.9 Anxiety disorder, unspecified; Z79.82 Long term (current) use of aspirin
CPT/HCPCS: 36415; 74177; 80048; 80053; 81003; 81015; 83605; 85025; 87040; 96365; 96372; 99285; J1650; J2270; J2405; J2470; J2543; Q9967

== ENCOUNTER → 2023-10-26 08:35 | Outpatient (BNVA) | payer MEDICARE, OTHER, SELFPAY | PROVIDERS: PCP Family Medicine; Visit Provider Surgery | DX: Z09 Encounter for follow-up examination after completed treatment for conditions other than malignant neoplasm; K57.32 Diverticulitis of large intestine without perforation or abscess without bleeding | CPT/HCPCS: 99214 ==

== ENCOUNTER → 2024-02-08 15:14 | Outpatient (BNVA) | payer MEDICARE, OTHER, SELFPAY | PROVIDERS: PCP Family Medicine | DX: R39.9 Unspecified symptoms and signs involving the genitourinary system (principal); J01.41 Acute recurrent pansinusitis; Z87.440 Personal history of urinary (tract) infections | CPT/HCPCS: 81000 ==

== ENCOUNTER 2024-03-13 09:32 | Outpatient (CLI) | payer MEDICARE, OTHER, SELFPAY ==
--- NOTE | 2024-03-13 09:33 | MM_ITS ---
WS: [id number] BILATERAL SCREENING DIGITAL TOMOSYNTHESIS MAMMOGRAM WITH CAD HISTORY: SCREENING COMPARISON: 09/29/2022, 08/31/2022, 07/09/2021 Bilateral CC and MLO views with tomosynthesis and synthetic mammography submitted. Computer aided det ection analyzed. Breast composition: There are scattered areas of fibroglandular density. No suspicious masses, microc alcifications or architectural distortion. Scattered benign coarse calcifications and arterial calcif ications in each breast. MM/MM scr BI tomosynthesis [id number] IMPRESSION: BI-RADS: 2 - Benign. FOLLOW UP: 1 Year Follow-up
== END 2024-03-13 09:33 | disposition home or self-care (01) ==
LOC: RAD 09:32
PROVIDERS: PCP Family Medicine; Visit Provider Family Medicine
DX: Z12.31 Encounter for screening mammogram for malignant neoplasm of breast (principal); R92.323 Mammographic fibroglandular density, bilateral breasts; R92.1 Mammographic calcification found on diagnostic imaging of breast
CPT/HCPCS: 77063; 77067

== ENCOUNTER 2024-07-28 20:00 | Emergency (ER) | payer MEDICARE, OTHER, SELFPAY ==
[2024-07-28 20:10] VITALS: BP 176/94; PULSE 112; RESP 22; TEMP 36.9; O2SAT 99; BMI 30.1
--- NOTE | 2024-07-28 20:16 | ECG_ITS ---
[facility]: 2024-07-28 Pat Name: Lucy Combs Department: Room: Gender: Female Sp[place] Carver: : 1955 Requested By: Lucas Garcia Order Number: [id number] MD: Berhane Kraus M.D. Measurements Intervals [place] Rate: 95 P: 69 SD: 185 QRS: 32 QRSD: 90 T: 58 QT: 340 QTc: 429 Interpretive Statements SINUS RHYTHM POSSIBLE RIGHT ATRIAL ENLARGEMENT [0.25mV P-WAVE] Compared to ECG 01/01/2018 12:55:00 No significant changes Electronically Signed On 07-29-2024 22:00:31 CDT by Berhane Kraus M.D. [email or web address]
--- NOTE | 2024-07-28 20:33 | CTR_ITS ---
PROCEDURE INFORMATION: Exam: CT Head Without Contrast Exam date and time: 07/28/2024 8:45 PM Age: 69 years old Clinical indication: Weakness, facial; C/O left facial numbness TECHNIQUE: Imaging protocol: Computed tomography of the head without contrast. Radiation optimization: All CT scans at this facility use at least one of these dose optimization techniques: automated exposure control; mA and/or kV adjustment per patient size (includes targeted exams where dose is matched to clinical indication); or iterative reconstruction. COMPARISON: No relevant prior studies available. RADIATION DOSE METRICS: Total DLP (mGy-cm): 1111.58 FINDINGS: Brain: Parenchymal volume loss with scattered white matter hyperintensities consistent with chronic microvascular ischemic changes. No acute intracranial hemorrhage, mass effect or midline shift. Cerebral ventricles: No ventriculomegaly. Paranasal sinuses: Visualized sinuses are unremarkable. No fluid levels. Mastoid air cells: Visualized mastoid air cells are well aerated. Bones: Unremarkable. No acute fracture. Soft tissues: Unremarkable. CT/CT head wo con* [id number] IMPRESSION: No acute intracranial abnormality.
[2024-07-28 20:44] LABS: Basophils % 0.5 %; Eosinophils # 0.2 10^3/uL (0.0-0.8); Eosinophils % 1.9 %; Hematocrit 42.8 % (36-47); Lymphocytes # 1.9 10^3/uL (0.8-4.8); Lymphocytes % 24.1 %; Mean Corpuscular HGB Conc 32.9 g/dL (30-55); Mean Corpuscular Hemoglobin 31.5 pg (27-33); Mean Corpuscular Volume 95.7 fl (85-98); Mean Platelet Volume 10.4 fL (7.4-10.4); Monocytes # 0.7 10^3/uL (0.2-0.9); Monocytes % 9.2 %; Neutrophils # 5.08 10^3/uL (1.8-7.7); Nucleated Red Blood Cells % 0 %; Platelet Count 198 10^3/cmm (157-399); Red Blood Count 4.47 10^6/uL (3.85-5.65); Red Cell Distribution Width 13.1 % (12.1-15.1); White Blood Count 7.93 10^3/uL (3.29-11.43)
[2024-07-28 20:51] LABS: Bacteria Urine None Seen /hpf; RBC Urine 0-2 /hpf (0-2); Squamous Epithelial Cell Urine 0-5 /hpf (0-5); WBC Urine 0-5 /hpf (0-5)
[2024-07-28 20:59] LABS: Add Urine Microscopic? YES; Bilirubin Urine Negative (Negative); Blood Urine Negative (Negative); Glucose Urine UA Negative (Normal); Ketones Urine Negative (Negative); Leukocyte Esterase Urine Negative (Negative); Nitrate Urine Negative (Negative); Protein Urine Negative (Negative); Specific Gravity, Urine 1.005 (1.005-1.030); Urine Appearance Clear (CLEAR); Urine Color Yellow (Yellow); Urobilinogen Urine 0.2 mg/dL (Negative)
[2024-07-28 21:01] LABS: Alanine Aminotransferase 20 U/L (0-33); Albumin Level 4.2 g/dL (3.5-5.2); Alkaline Phosphatase 89 U/L (35-105); Aspartate Amino Transferase 23 U/L (0-32); Blood Urea Nitrogen 19 mg/dL (8-23); Calcium 9.7 mg/dL (8.5-10.5); Carbon Dioxide 21 mmol/L (22-29); Chloride 106 mmol/L (98-107); Creatine Phosphokinase 293 U/L (26-192); Creatinine Clr Calc Pharmacy 63.4198; Globulin 3.1 g/dL (1.3-4.6); Glucose 101 mg/dL (65-115); Magnesium 2.1 mg/dL (1.7-2.3); Osmolality Calculated 290 mOsm/kg (285-295); Sodium 139 mmol/L (136-145); Total Bilirubin 0.2 mg/dL (0.15-1.2); Total Protein 7.3 g/dL (6.6-8.7)
[2024-07-28] MEDS: valproic acid inj 500 MG in sodium chloride 0.9% 50 ML 55 MG IV (21:10)
[2024-07-28 21:28] LABS: INR 0.94 (0.8-1.2); Partial Thromboplastin Time 27.8 SECONDS (23.9-36.7)
--- NOTE | 2024-07-28 21:41 | W.ED.HA ---
HPI - Headache General: Chief Complaint: Headache Stated Complaint: Left Side of face and body Numb Time Seen by Provider: 07/28/24 20:19 History of Present Illness: 69-year-old female with no prior history of stroke or heart disease. She presents with headache, left-sided chest pain, left side of face and upper greater than lower extremity paresthesias on and off for the past week. Was worse today symptom saravia. She is under a lot of stress, and thought initially this was due to stress. Her blood pressure has been high the last 2 days. No fever. No other illnesses. Related Data Home Medications ?Medication ?Instructions ?Recorded ?Confirmed aspirin 81 mg tablet,delayed 81 mg PO DAILY 09/30/19 02/08/24 release calcium 600 mg (as 1 cap PO DAILY 11/06/20 02/08/24 carbonate)-vitamin D3 12.5 mcg (500 unit) capsule (Calcium with Vit D3) Previous Rx's ?Medication ?Instructions ?Recorded fluticasone propionate 50 1 spray intranasal DAILY PRN sinus 11/02/23 mcg/actuation nasal congestion #16 grams spray,suspension (Flonase Allergy Relief) alprazolam 0.25 mg tablet (Xanax) 0.25 - 0.5 mg (1 - 2 x 0.25 mg) PO 02/22/24 .qpm PRN anxiety, stress, sleep #60 tabs albuterol sulfate 90 mcg/actuation 2 puff inhalation Q6H PRN 02/27/24 aerosol inhaler shortness of breath or wheezing #8.5 grams benzonatate 200 mg capsule 200 mg PO TID PRN cough #20 caps 02/27/24 clobetasol 0.05 % topical cream 1 applic topical BID dermatosis 04/26/24 #30 grams ketoconazole 2 % topical cream 1 applic topical BID PRN rash/skin 04/26/24 irritation #30 grams zolpidem 10 mg tablet (Ambien) 10 mg PO BEDTIME sleep #30 tabs 07/05/24 montelukast 10 mg tablet 10 mg PO DAILY #30 tabs 07/15/24 amlodipine 10 mg tablet 10 mg PO DAILY #30 tabs 07/29/24 Allergies Allergy/AdvReac Type Severity Reaction Status Date / Time No Known Allergies Allergy Verified 07/28/24 20:16 [facility] ED PFSH: Medical History Anxiety GERD (gastroesophageal reflux disease) Seasonal allergies Thyroid goiter History of hypothyroidism History of Lyme disease Insomnia Surgical History History of total hysterectomy 1984/severe endometriosis History of appendectomy 1970 History of back surgery 1977-- 4th and 5th lumbar disc removal-- denies any complications Family History Denies family history of Diabetes CAD (coronary artery disease) Clotting disorder Hyperlipidemia Chronic kidney disease (CKD) Bleeding disorder Cancer Hypertension Thyroid disease Stroke Social History Smoking and tobacco/nicotine status: never used tobacco/nicotine Substance/Drug Use: never Physical Exam Const: COMMON NORMALS: no acute distress GENERAL APPEARANCE: cooperative; not ill appearing and not frail appearing HENMT: COMMON NORMALS: normocephalic, atraumatic and Normal external nose present HEAD & SCALP: normocephalic and atraumatic FACE & SINUS: normal facial exam and face symmetric NOSE: Normal external nose present Eye: COMMON NORMALS: Equal, round and reactive pupils present and EOMs intact bilaterally PUPIL: Yes Equal, round and reactive pupils present Neck/C-Spine: GENERAL: Yes trachea midline Chest: CHEST: Yes Symmetrical chest wall rise Resp: COMMON NORMALS: normal respiratory effort, No retractions, No use of accessory muscles and clear to auscultation bilaterally AUSCULTATION: clear to auscultation bilaterally Cardio: COMMON NORMALS: regular rate and regular rhythm RATE: regular rate RHYTHM: regular rhythm GI: COMMON NORMALS: Normal to inspection, nondistended, normoactive bowel sounds present Extremity: COMMON NORMALS: no pedal edema Neuro: LUCRECIA COMA SCALE: document GCS findings Lucrecia coma scale eye opening: Spontaneous Trumann coma scale verbal response: Orientated Trumann coma scale motor response: Obey commands Lucrecia coma scale total score: 15 SENSORY EXAM: Yes extremities (intact) Psych: COMMON NORMALS: speech normal SPEECH: Yes normal speech Skin: COMMON NORMALS: no rashes or lesions noted GENERAL SKIN EXAM: no rashes or lesions noted Course Vital Signs: Vital signs: Vital Signs Temperature 98.5 F 07/28/24 20:10 Pulse Rate 85 07/28/24 23:16 Respiratory Rate 12 07/28/24 23:16 Blood Pressure 124/70 07/28/24 23:16 Pulse Oximetry 97 07/28/24 23:16 Oxygen Delivery Me thod Room Air 07/28/24 20:10 MDM - Headache Medical Decision Making Patient is mildly to moderately hypertensive. Initially tachycardic, not currently. CBC is normal. BMP is unremarkable. Urinalysis is negative. CRP is 3. Head CT is negative. She is given IV Depacon infusion for her symptoms. Patient's dizziness and headache were moderately improved following Depacon. Patient was given morphine and Reglan, with resolution of her headache, no further chest pain. EKG revealed sinus rhythm with a rate of 95, normal axis, normal intervals, no acute ST wave changes. CK is mildly elevated. Troponin is mildly elevated at 28. 2-hour troponin is 21. With resolution of her symptoms, negative findings, she will be allowed discharge. Close outpatient follow-up. She is to return for any return of or worsening symptoms. Lab Data 07/28/24 20:38 07/28/24 20:[address] 07/28/24 20:33 IMPRESSION: No acute intracranial abnormality. Chest X-Ray 07/28/24 22:32 IMPRESSION: No acute findings. Laboratory Results WBC 7.93 10^3/uL (3.29-11.43) 07/28/24 20:38 RBC 4.47 10^6/uL (3.85-5.65) 07/28/24 20:38 Hgb 14.10 g/dL (11.27-16.99) 07/28/24 20:38 Hct 42.8 % (36-47) 07/28/24 20:38 MCV 95.7 fl (85-98) 07/28/24 20:38 MCH 31.5 pg (27-33) 07/28/24 20:38 MCHC 32.9 g/dL (30-55) 07/28/24 20:38 RDW 13.1 % (12.1-15.1) 07/28/24 20:38 Plt Count 198 10^3/cmm (157-399) 07/28/24 20:38 MPV 10.4 fL (7.4-10.4) 07/28/24 20:38 Neut % (Auto) 64.0 % 07/28/24 20:38 Lymph % (Auto) 24.1 % 07/28/24 20:38 [place] % (Auto) 9.2 % 07/28/24 20:38 Eos % (Auto) 1.9 % 07/28/24 20:38 Baso % (Auto) 0.5 % 07/28/24 20:38 Neut # (Auto) 5.08 10^3/uL (1.8-7.7) 07/28/24 20:38 Lymph # (Auto) 1.9 10^3/uL (0.8-4.8) 07/28/24 20:38 [place] # (Auto) 0.7 10^3/uL (0.2-0.9) 07/28/24 20:38 Eos # (Auto) 0.2 10^3/uL (0.0-0.8) 07/28/24 20:38 Baso # (Auto) 0.0 10^3/uL (0.0-0.1) 07/28/24 20:38 Nucleated RBC % (auto) 0 % 07/28/24 20: Nucleated RBCs # 0.0 /100WBC 07/28/24 20:38 PT 13.30 SECONDS (12.1-14.9) 07/28/24 21:00 INR 0.94 (0.8-1.2) 07/28/24 21:00 APTT 27.8 SECONDS (23.9-36.7) 07/28/24 21:00 Sodium 139 mmol/L (136-145) 07/28/24 20:38 Potassium 4.0 mmol/L (3.5-5.1) 07/28/24 20:38 Chloride 106 mmol/L (98-107) 07/28/24 20:38 Carbon Dioxide 21 mmol/L (22-29) L 07/28/24 20:38 Anion Gap 16.0 (5-19) 07/28/24 20:38 BUN 19 mg/dL (8-23) 07/28/24 20:38 Creatinine 0.8 mg/dL (0.5-0.9) 07/28/24 20:38 GFR Calculation Not Reportable 07/28/24 20:38 Glucose 101 mg/dL (65-115) 07/28/24: Calculated Osmolality 290 mOsm/kg (285-295) 07/28/24 20: Calcium 9.7 mg/dL (8.5-10.5) 07/28/24: Magnesium 2.1 mg/dL (1.7-2.3) 07/28/24: Total Bilirubin 0.2 mg/dL (0.15-1.2) 07/28/24 20: AST 23 U/L (0-32) 07/28/24: ALT 20 U/L (0-33) 07/28/24: Alkaline Phosphatase 89 U/L (35-105) 07/28/24: Creatine Kinase 293 U/L (26-192) H 07/28/24: Troponin T Baseline 28 ng/L (0-10) H 07/28/24: Troponin T 120 Minute 21.67 ng/L (0-10) H 07/28/24:25 Delta Troponin T -6.33 ABS# (0-10) L 07/28/24: C-Reactive Protein 3.0 mg/L (0.0-4.9) 07/28/24 20: Total Protein 7.3 g/dL (6.6-8.7) 07/28/24: Albumin 4.2 g/dL (3.5-5.2) 07/28/24: Globulin 3.1 g/dL (1.3-4.6) 07/28/24: Urine Color Yellow (Yellow) 07/28/24: Urine Appearance Clear (CLEAR) 07/28/24: Urine pH 6.0 (5-7) 07/28/24: Ur Specific [place] 1.005 (1.005-1.030) 07/28/24: Urine Protein Negative (Negative) 07/28/24: Urine Glucose (UA) Negative (Normal) 07/28/24 20: Urine Ketones Negative (Negative) 07/28/24: Urine Blood Negative (Negative) 07/28/24: Urine Nitrate Negative (Negative) 07/28/24: Urine Bilirubin Negative (Negative) 06/15/25 20:38 Urine Urobilinogen 0.2 mg/dL (Negative) 07/28/24 20:38 Ur Leukocyte Esterase Negative (Negative) 07/28/24 20:38 Urine RBC 0-2 /hpf (0-2) 07/28/24 20:38 Urine WBC 0-5 /hpf (0-5) 07/28/24 20:38 Ur Squamous Epith Cells 0-5 /hpf (0-5) 07/28/24 20:38 Amorphous Sediment Not Reportable 07/28/24 20:38 Urine Bacteria None seen /hpf (NONE) 07/28/24 20:38 Hyaline Casts 0.40 /lpf 07/28/24 20:38 All radiology interpretation(s) finalized by discharge Discharge Plan Discharge Patient Disposition: Home Clinical Impression: Stress, Headache, Hypertension Condition: Stable Prescriptions: New amlodipine 10 mg tablet 10 mg PO DAILY Qty: 30 0RF No Action aspirin 81 mg tablet,delayed release (DR/EC) 81 mg PO DAILY calcium carbonate-vitamin D3 [Calcium 600 with Vitamin D3] 600 mg(1,500mg) -500 unit capsule 1 cap PO DAILY albuterol sulfate 90 mcg/actuation HFA aerosol inhaler 2 puff inhalation Q6H PRN (Reason: shortness of breath or wheezing) Qty: 8.5 0RF benzonatate 200 mg capsule 200 mg PO TID PRN (Reason: cough) Qty: 20 0RF fluticasone propionate [Flonase Allergy Relief] 50 mcg/actuation spray,suspension 1 spray INTRANASAL DAILY PRN (Reason: sinus congestion) Qty: 16 5RF Rx Instructions: administer into each nostril alprazolam [Xanax] 0.25 mg tablet 0.25 - 0.5 mg PO .qpm PRN (Reason: anxiety, stress, sleep) Qty: 60 5RF clobetasol 0.05 % cream 1 applic topical BID Qty: 30 3RF Rx Instructions: use twice daily for two weeks only and then twice a week after that. ketoconazole 2 % cream 1 applic TOPICAL BID PRN (Reason: rash/skin irritation) Qty: 30 3RF Ambien 10 mg tablet 10 mg PO BEDTIME Qty: 30 5RF montelukast 10 mg tablet 10 mg PO DAILY Qty: 30 11RF Discharge Orders: Discharge ED (Routine); Ordered 07/29/24 Ordered By: Lucas Love Referrals: Yariel Sherwood, [Primary Care Provider, [facility]] - 1-3 days Patient Instructions: Acute Headache (ED), Hypertension (ED), Opioid Safety, Pain Management Activity Restrictions/Additional Instructions: Take your blood pressure twice daily. Report numbers to your doctor. Call your doctor tomorrow for follow-up appointment. If your blood pressure remains greater than 150 systolic (the top number) take the medication you were prescribed. Return for return of chest discomfort, worsening headache, mental status changes, weakness, fever, any other concerning symptoms. Print Language: Belarusian Coding Level of Care Code ED Animal Cruelty Investigator for Jignag Fwsoheila NIH stroke score NIHSS Level Of Consciousness - 1a: 0 Level Of Consciousness Questions - 1b: Both Correct Level Of Consciousness Commands - 1c: Both Correct Best Gaze - 2: Normal Visual Miguel - 3: No Visual Loss Facial Palsy - 4: Normal Motor Arm Right - 5: No Drift Motor Arm Left - 5: No Drift Motor Leg Right - 6: No Drift Motor Leg Left - 6: No Drift Limb Ataxia - 7: Absent Sensory - 8: Normal Best Language - 9: No Aphasia Dysarthia - 10: Normal Extinction And Inattention - 11: 0 Score Total Score: 0
[2024-07-28 21:46] VITALS: BP 162/86; PULSE 97; O2SAT 95
[2024-07-28 22:00] LABS: Troponin(5th) Baseline 28 ng/L (0-10)
[2024-07-28 22:16] VITALS: BP 156/88; PULSE 93; O2SAT 97
--- NOTE | 2024-07-28 22:32 | XRR_ITS ---
PROCEDURE INFORMATION: Exam: XR Chest Exam date and time: 07/28/2024 10:40 PM Age: 69 years old Clinical indication: Pain; Chest pressure; Additional info: Cp TECHNIQUE: Imaging protocol: Radiologic exam of the chest. Views: 1 view. COMPARISON: CR XR chest 2V* [id number] 09/02/2019 2:27 PM FINDINGS: Lungs: Unremarkable. No consolidation. Pleural spaces: Unremarkable. No pleural effusion. No pneumothorax. Heart/Mediastinum: Unremarkable. No cardiomegaly. Bones/joints: Unremarkable. XR/XR chest 1V portable [id number] IMPRESSION: No acute findings.
[2024-07-28 22:36] VITALS: RESP 18; O2SAT 98
[2024-07-28] MEDS: morphine 4 mg/mL SDV 1 mL IVP (22:36)
[2024-07-28] MEDS: metoclopramide 5 mg/mL SDV 2 mL 10 MG IVP (22:40)
[2024-07-28 23:16] VITALS: BP 124/70; PULSE 85; RESP 12; O2SAT 97
[2024-07-28 23:47] LABS: Troponin 5 2HR 21.67 ng/L (0-10)
[2024-07-28 23:53] LABS: Troponin 5 2HR Delta -6.33 ABS# (0-10)
[2024-07-29 03:43] VITALS: BP 131/80; PULSE 88; RESP 17; O2SAT 97
== END 2024-07-29 00:30 | disposition home or self-care (01) ==
PROVIDERS: Emergency Provider Emergency Medicine; PCP Family Medicine
DX: F43.9 Reaction to severe stress, unspecified (principal); R51.9 Headache, unspecified; I10 Essential (primary) hypertension; Z79.82 Long term (current) use of aspirin
CPT/HCPCS: 70450; 71045; 80053; 81001; 82550; 83735; 84484; 85025; 85610; 85730; 86140; 93005; 96365; 96375; 99285; J2270; J2765; J3490

== ENCOUNTER → 2025-01-08 09:48 | Outpatient (BNVA) | payer MEDICARE, OTHER, SELFPAY | PROVIDERS: PCP Family Medicine; Visit Provider Family Medicine | DX: K57.90 Diverticulosis of intestine, part unspecified, without perforation or abscess without bleeding (principal); F43.9 Reaction to severe stress, unspecified; F41.9 Anxiety disorder, unspecified; N39.0 Urinary tract infection, site not specified | CPT/HCPCS: 81000; 85025 ==